=== PATIENT | female | born 1940 | race Caucasian/White ===

== ENCOUNTER → 2016-08-23 | Outpatient (CLI) | payer MEDICARE ==
[2016-04-21 16:15] VITALS: BP 142/68
[~2016-08-23] MED LIST: AMLO5TAB2 PO; ASPI81TA50 PO; CITA20TA5 PO; CONTRAST GIVEN MC PRN; HEPARIN PF 500 UNIT/5 ML DISP.SYRIN. IV ONE; HYDR-2666 PO; IBUP200T77 PO; IOHEXOL 240 MG/ML 50ML VIAL. PO ONE; IOHEXOL 300 MG/ML 75 ML VIAL IV ONE; LOSA1TAB17 PO; OMEP40CA5 PO; OXYB1PAT TD; OXYB5TAB7 PO; OXYC5CAP3 PO; OXYC5TAB PO
--- NOTE | 2016-08-23 15:43 | RAD ---
CT of the chest with contrast, 08/23/2016: History: Lung cancer follow-up. Multidetector CT imaging was performed following an IV bolus injection of iodinated contrast material. Comparison is made to a study from 02/10/2016. By history there has been an interval left lower lobectomy. The previously seen left infrahilar mass is no longer evident. There are mild hazy groundglass opacities in the posterior aspect of the left lung. There is mild linear scarring or atelectasis in the lingula. A small amount of left-sided pleural fluid is now evident. No right pulmonary mass or significant consolidation is seen. Minimal linear scarring laterally in the right base. There is no evidence of right-sided pleural fluid. A left Port-A-Cath extends into the right atrium. There is calcific plaquing of the thoracic aorta without evidence of aneurysm. No mediastinal or hilar adenopathy is seen. A small nonspecific low-density lesion is incidentally noted in the right lobe of the thyroid gland. This study was not optimized for evaluation of the pulmonary arteries, however, there appears to be a nonocclusive elongated filling defect in the right lower lumbar pulmonary artery extending into segmental branches. This was not evident on the previous study from 02/10/2016. The right breast is surgically absent. There is a mild superior endplate deformity at T12, not evident on 02/10/2016 study. IMPRESSION: 1. Status post left lower lobectomy. 2. Small left pleural effusion with mild nonspecific groundglass infiltrate posteriorly in the left upper lobe. 3. Incidental note is made of a nonocclusive pulmonary embolus in the right lower lobe pulmonary artery, not optimally demonstrated on this study due to technical factors. 4. Mild T12 vertebral compression deformity which has developed since 02/10/2016. Note: The findings were called to Dr. Finn at 3:39 PM on 08/23/2016. CT of the abdomen and pelvis with contrast, 08/23/2016: Multidetector CT imaging was performed following oral and IV administration of contrast. The liver is unremarkable. The gallbladder is not well distended. No pancreatic abnormality is seen. The spleen is of normal size. No renal or adrenal abnormality is detected. There is moderate calcific plaquing of the abdominal aorta and its branches. There is only slight dilatation of the infrarenal abdominal aorta which measures approximately 2.5 cm in AP dimension. No abdominal or pelvic adenopathy is seen. There is a moderate amount of gas and stool scattered throughout the colon. The small bowel loops are unremarkable. No free fluid or free air is evident in the abdomen or pelvis. There are moderate scattered degenerative changes of the lumbar spine. IMPRESSION: No CT evidence of metastatic disease in the abdomen or pelvis.
== END | disposition home or self-care (01) ==
LOC: CT 06:57
PROVIDERS: ATTEND Internal Medicine Hematology & Oncology
DX: C34.92 Malignant neoplasm of unspecified part of left bronchus or lung (principal); K59.03 Drug induced constipation; K20.8 Other esophagitis; K59.09 Other constipation; G62.9 Polyneuropathy, unspecified; J90 Pleural effusion, not elsewhere classified; Z90.2 Acquired absence of lung [part of]
CPT/HCPCS: 71260; 74177; Q9966; Q9967

== ENCOUNTER → 2017-02-09 | Outpatient (CLI) | payer BC, OTHER ==
[2016-04-21 16:15] VITALS: BP 142/68
[~2017-02-09] MED LIST changes: +APIX5TAB PO; -CONTRAST GIVEN MC PRN; -HYDR-2666 PO; +HYDR-2758 PO; -IOHEXOL 240 MG/ML 50ML VIAL. PO ONE; +OXYC5CAP PO; -OXYC5CAP3 PO
--- NOTE | 2017-02-09 11:18 | RAD ---
CT chest with contrast 02/09/2017 Clinical indication: Left lung carcinoma. History of breast carcinoma on the right status post mastectomy. Comparison: CT chest abdomen and pelvis August 23, 2016. Technique: Multiple CT images of the chest were obtained following uneventful intravenous administration of 75 mL Omnipaque 300. Coronal and sagittal reformations were obtained. PQRS Compliance Statement: One or more of the following individualized dose reduction techniques were utilized for this examination: 1. Automated exposure control 2. Adjustment of the mA and/or kV according to patient size 3. Use of iterative reconstruction technique Findings: Chest: Left IJ approach chest port with distal tip in similar position terminating in the right atrium. There is stable mild dilatation of the ascending thoracic aorta measuring 4.3 cm with minimal scattered calcified atheromatous disease. Coronary artery calcifications. Prior left lower lobectomy. There has been interval development of left perihilar consolidation measuring 3.4 x 1.3 cm (series 6/image 41). There is a stable 4 mm noncalcified nodule in the anterior left upper lobe (series 6/image 33). There are additional sub-3 mm noncalcified nodular opacities throughout the left lung.. There is a trace left pleural effusion. No pneumothorax. No axillary, mediastinal or right hilar lymphadenopathy. Prior right mastectomy. Multilevel thoracic spondylosis with unchanged moderate anterior-superior T12 compression deformity without significant bony retropulsion. Limited images of the upper abdomen: Small hiatal hernia. Impression: 1. Prior left lower lobectomy with development of mild left perihilar consolidation measuring up to 3.4 cm, indeterminate between posttherapeutic fibrosis versus recurrent tumor. Short-term follow-up CT chest with contrast and 1 months should be considered. 2. Unchanged bilateral sub-5 mm pulmonary nodules, indeterminate. These could be followed with the above findings. 3. No new thoracic adenopathy. 4. Stable moderate T12 compression deformity without bony retropulsion.
== END | disposition home or self-care (01) ==
LOC: CT 09:10
PROVIDERS: ATTEND Internal Medicine Hematology & Oncology
DX: C34.92 Malignant neoplasm of unspecified part of left bronchus or lung (principal); Z85.3 Personal history of malignant neoplasm of breast; Z90.11 Acquired absence of right breast and nipple
CPT/HCPCS: 71260; Q9967

== ENCOUNTER → 2017-03-25 | Outpatient (CLI) | payer BC, OTHER ==
[2016-04-21 16:15] VITALS: BP 142/68
[~2017-03-25] MED LIST changes: +AMLO2.5T PO; +GABA-586 PO; -HEPARIN PF 500 UNIT/5 ML DISP.SYRIN. IV ONE; -IOHEXOL 300 MG/ML 75 ML VIAL IV ONE; +LOSA1TAB16 PO; -OXYC5TAB PO; +OXYC5TAB95 PO; +PARO20TA99 PO
--- NOTE | 2017-03-25 12:56 | RAD ---
MR of the right shoulder Indication: Worsening right shoulder pain. Symptoms for one month. Technique: Standard multiplanar sequences are obtained. Findings: Mild motion degradation. Exam is still considered diagnostic. Acromioclavicular joint: Mildly degenerative. Rotator cuff: Mild thickening and increased signal compatible with tendinosis. There is a small linear deep undersurface tear of the anterior supraspinatus footprint, coronal series 6, image 14 measuring 5 mm AP diameter and involving 80 percent of the tendon depth. No complete through and through rupture or retraction. Trace fluid in the subdeltoid bursa. Partial subscapularis tendon tear. Glenohumeral cartilage: No advanced primary osteoarthritis. Fluid: No significant joint effusion. Labrum: Tear of the posterosuperior labrum. Biceps tendon: Mild tendinosis. Bones: No lesion or acute fracture. Soft tissue: No acute findings. Impression: 1. Rotator cuff tendinosis. Very small but deep linear undersurface tear of the anterior supraspinatus tendon. Partial subscapularis tendon tear. 2. Posterosuperior labral tear. Electronically signed by: Andrzej Robert MD (03/25/2017 12:53 PM) [id number]
--- NOTE | 2017-03-29 14:06 | PN ---
DATE: REFERRING PHYSICIAN: Dr. Eduardo Castro. DIAGNOSIS: Pathologic stage 3A (T2N2M0) adenocarcinoma of the left lung. She underwent biopsy in 02/2016. She underwent resection in 03/2016. She had mediastinal involvement with involvement of the bronchial margin of resection. She received adjuvant radiation to 50 Gy with carboplatin and Taxol, completing radiation in 05/2016. She then received ongoing chemotherapy and now returns 6 months following treatment. ICD-10 34.32. At the time of her followup here on 03/24/2017, she noted significant reduction in the mobility of her right shoulder to approximately 90 degrees from the torso. From oncologic standpoint, she was doing fairly well. CT scan of the chest at that time on 02/09/2017 revealed mixed air density around the left hilar region compatible with postradiation fibrosis with no adenopathy and a stable 4-mm nodule in the left upper lobe and 3-mm nodule in the left lung of uncertain significance. At that time, we did pursue an MRI scan of the right shoulder to evaluate her rotator cuff and to exclude the potential for metastatic disease causing her pain. The MRI scan revealed rotator cuff tendinosis with a very small, but deep linear undersurface tear of the anterior supraspinatus tendon and partial subscapularis tendon tear. There was also a posterosuperior labral tear. I discussed this with the patient by phone, I felt she required orthopedic evaluation and likely physical therapy for initial intervention for her rotator cuff tears. I have referred her to you for further assessment of this and referral to an orthopedic surgeon as indicated by your review. We will plan to see her in followup in 3 months with a repeat CT scan of the chest to assess stability of her post-radiation changes seen at her followup imaging in 02/2017. Thank you again for allowing us to participate in her care and followup. SULEMAN PEREA MD DR: SUZIE/stanislaw JOB#: [id number] / [id number] SAUD Petty
== END | disposition home or self-care (01) ==
LOC: MRI 10:33
PROVIDERS: ATTEND Radiology Radiation Oncology
DX: M75.101 Unspecified rotator cuff tear or rupture of right shoulder, not specified as traumatic (principal)
CPT/HCPCS: 73221

== ENCOUNTER → 2017-05-26 | Outpatient (CLI) | payer BC, OTHER ==
[2016-04-21 16:15] VITALS: BP 142/68
[~2017-05-26] MED LIST changes: -LOSA1TAB16 PO; -LOSA1TAB17 PO; +LOSA1TAB19 PO; +LOSA1TAB22 PO
--- NOTE | 2017-05-26 14:29 | RAD ---
EXAM: PET/CT SKULL BASE TO MID THIGH 05/26/2017. HISTORY: Malignant neoplasm of the female breast and lung. COMPARISON: CT chest 05/16/2017, CT chest 02/09/2017, PET CT 03/11/2016. TECHNIQUE: CT was performed from the skull base through the mid thighs for the purposes of attenuation correction. 12.4 mCi F-18 fluorodeoxyglucose (FDG) was administered intravenously. After an uptake period, positron emission tomography was performed from the skull base through the mid thighs. The PET and CT data were fused and interpreted in combination a dedicated workstation. Blood glucose level was 100 mg/dL at the time of FDG administration. FINDINGS: Head and neck: No discrete hypermetabolic mass or lymphadenopathy. Chest: Prior left lower lobectomy. There is left perihilar consolidation measuring 2.9 x 2.0 cm series 3/image 148 with mild associated FDG uptake maximum SUV of 3.6. No hypermetabolic thoracic lymphadenopathy. Abdomen and pelvis: There is physiologic uptake in both kidneys with excretion into the renal collecting system. There is intense increased FDG activity in the rectum with maximum SUV 5.9 with possible soft tissue mass on the CT images measuring 3.0 cm series 3 cm image 369. Musculoskeletal: There is a tiny punctate focus of FDG uptake at T11 with maximum SUV of 3.0 with no suspicious correlate on the CT images. Uncorrected PET images. Uncorrected PET images demonstrate no additional lesion. Low-dose CT findings: Left IJ chest port with distal tip terminating in the right atrium. Prior right mastectomy. Mild ectasia of the infrarenal abdominal aorta with moderate calcite atheromatous disease. Impression: 1. Prior left lower lobectomy with left perihilar masslike consolidation with mild increased FDG uptake, findings are indeterminate between posttherapeutic fibrosis and recurrent tumor. Continued follow-up is recommended. 2. Focal FDG uptake in the rectum with maximum SUV 5.9 and possible associated soft tissue mass. Endoscopy is recommended for further evaluation to exclude malignancy. 3. Punctate FDG uptake at T11 vertebral body with no associated CT correlate, may be physiologic. Attention on follow-up imaging is recommended. 4. No hypermetabolic lymphadenopathy in the neck or chest.
== END | disposition home or self-care (01) ==
LOC: PETSC 08:21
PROVIDERS: ATTEND Internal Medicine Hematology & Oncology
DX: C34.92 Malignant neoplasm of unspecified part of left bronchus or lung (principal); Z90.2 Acquired absence of lung [part of]
CPT/HCPCS: 78815; A9552

== ENCOUNTER → 2017-08-31 | Outpatient (CLI) | payer BC ==
[2017-08-31] MEDS: IOHEXOL 300 MG/ML 100ML VIAL. IV ×2 (09:08)
[2017-08-31] MEDS: HEPARIN PF 500 UNIT/5 ML DISP.SYRIN. IV ×2 (09:09)
== END | disposition home or self-care (01) ==
LOC: CT 08:30
DX: C34.92 Malignant neoplasm of unspecified part of left bronchus or lung (principal); S22.080G Wedge compression fracture of T11-T12 vertebra, subsequent encounter for fracture with delayed healing; R94.2 Abnormal results of pulmonary function studies; Z90.11 Acquired absence of right breast and nipple; X58.XXXD Exposure to other specified factors, subsequent encounter
CPT/HCPCS: 71260; Q9967

== ENCOUNTER → 2017-09-09 | Outpatient (CLI) | payer BC | END | disposition home or self-care (01) | LOC: NM 08:25 | DX: C34.92 Malignant neoplasm of unspecified part of left bronchus or lung (principal); M41.85 Other forms of scoliosis, thoracolumbar region; I10 Essential (primary) hypertension | CPT/HCPCS: 78306; 96374; A9503 ==

== ENCOUNTER 2017-11-15 10:19 | Emergency (ER) | payer BC ==
[2017-11-15] MEDS: oxyCODONE IR 5 MG TABLET PO (10:40)
[2017-11-15] MEDS: LIDOCAINE 1% Multi-Dose 50 ML VIAL. INJ (11:33)
== END 2017-11-15 12:03 | disposition home or self-care (01) ==
LOC: ER 10:19
DX: S52.501A Unspecified fracture of the lower end of right radius, initial encounter for closed fracture (principal); W01.0XXA Fall on same level from slipping, tripping and stumbling without subsequent striking against object, initial encounter; Y93.01 Activity, walking, marching and hiking; Y92.096 Garden or yard of other non-institutional residence as the place of occurrence of the external cause; Y99.8 Other external cause status; Z88.0 Allergy status to penicillin; Z88.2 Allergy status to sulfonamides; Z88.5 Allergy status to narcotic agent; Z91.048 Other nonmedicinal substance allergy status
CPT/HCPCS: 25605; 73110; 99284

== ENCOUNTER → 2017-11-18 | Day surgery (SDC) | payer BC ==
[~2017-11-18] MED LIST changes: -AMLO2.5T PO; -AMLO5TAB2 PO; -APIX5TAB PO; -ASPI81TA50 PO; -CITA20TA5 PO; +CLINDAMYCIN 600MG PREMIX 50 ML IV; +DEXAMETHASONE SOD PHOS 20 MG/5 ML VIAL.; -GABA-586 PO; +HEPARIN PF 500 UNIT/5 ML DISP.SYRIN. IV; -HYDR-2758 PO; -IBUP200T77 PO; +IV RINGERS,LACTATED 1000ML 1,000 ML IV; +LIDOCAINE 1% PF 2 ML VIAL. ID; +LIDOCAINE 2% PF Vial for OR 5 ML VIAL.; -LOSA1TAB19 PO; -LOSA1TAB22 PO; +MORPHINE SULFATE 4 MG/ML DISP.SYRIN. IV; -OMEP40CA5 PO; +ONDANSETRON PF 4 MG/2 ML VIAL.; -OXYB1PAT TD; -OXYB5TAB7 PO; -OXYC5CAP PO; -OXYC5TAB95 PO; -PARO20TA99 PO; +PROCHLORPERAZINE 10 MG/2 ML VIAL. IV; +PROPOFOL 20 ML IV; +SEVOFLURANE 61 TO 120 MINUTES. IH; +ceFAZolin 2GM PREMIX 2 GM/50 ML BAG IV; +fentaNYL PF VIAL 100 MCG/2 ML VIAL; +fentaNYL PF VIAL 100 MCG/2 ML VIAL IV
[2017-11-18 13:23] LABS: ADD MAN DIFF? NO
[2017-11-18 13:33] LABS: BASO % 1 % (0-3); EOS # 0.1 x10^3/uL (0.0-0.7); EOS % 2 % (0-3); HEMATOCRIT 34.7 % (36.0-47.0); HEMOGLOBIN 12.1 g/dL (12.0-15.5); LYMPH # 1.9 x10^3/uL (1.0-4.8); LYMPH % 28 % (24-48); MEAN CORPUSCULAR HEMOGLOBIN 30 pg (25-35); MEAN CORPUSCULAR HGB CONC 35 g/dL (31-37); MEAN CORPUSCULAR VOLUME 85 fL (79-100); MONO # 0.8 x10^3/uL (0.0-1.1); MONO % 11 % (0-9); NEUT # 3.8 x10^3uL (1.8-7.7); NEUT % 58 % (31-73); PLATELET COUNT 150 x10^3/uL (140-400); RED BLOOD COUNT 4.08 x10^6/uL (3.50-5.40); RED CELL DISTRIBUTION WIDTH 14.4 % (11.5-14.5); WHITE BLOOD COUNT 6.6 x10^3/uL (4.0-11.0)
[2017-11-18 13:34] LABS: BILIRUBIN,URINE NEGATIVE (NEG); CLARITY,URINE CLEAR; COLOR,URINE YELLOW; GLUCOSE,URINE NEGATIVE (NEG); NITRITE,URINE NEGATIVE (NEG); PROTEIN,URINE NEGATIVE (NEG-TRACE); UROBILINOGEN,URINE 0.2 mg/dL (0.2 mg/dL)
[2017-11-18 13:36] LABS: ANION GAP 6 (6-14); BLOOD UREA NITROGEN 14 mg/dL (7-20); BUN/CREATININE RATIO 18 (6-20); CALCIUM 9.2 mg/dL (8.5-10.1); CARBON DIOXIDE 30 mmol/L (21-32); CHLORIDE 102 mmol/L (98-107); CREATININE 0.8 mg/dL (0.6-1.0); GFR 69.7; GLUCOSE 101 mg/dL (70-99); POTASSIUM 3.5 mmol/L (3.5-5.1); SODIUM 138 mmol/L (136-145)
[2017-11-18 13:44] LABS: ALBUMIN 3.6 g/dL (3.4-5.0); ALK PHOS 85 U/L (46-116); ALT (SGPT) 19 U/L (14-59); AST (SGOT) 20 U/L (15-37); TOTAL BILIRUBIN 0.7 mg/dL (0.2-1.0); TOTAL PROTEIN 7.1 g/dL (6.4-8.2)
[2017-11-18] MEDS: IV RINGERS,LACTATED 1000ML 1,000 ML IV (13:44)
[2017-11-18 13:46] LABS: BACTERIA,URINE FEW /HPF (0-FEW); RBC,URINE 0 /HPF (0-2); SQUAMOUS EPITHELIAL CELL,UR OCC /LPF
[2017-11-18 15:47] LABS: INR 1.1 (0.8-1.1); PARTIAL THROMBOPLASTIN TIME 24 SEC (24-38); PROTHROMBIN TIME PATIENT 13.5 SEC (11.7-14.0)
[2017-11-18] MEDS: BUPIVACAINE-EPI 0.25%-1:200000 50 ML VIAL. (16:46)
[2017-11-18] MEDS: fentaNYL PF VIAL 100 MCG/2 ML VIAL IV ×2 (18:24→18:32)
[2017-11-18] MEDS: oxyCODONE IR 5 MG TABLET PO (19:21)
== END | disposition home or self-care (01) ==
LOC: SURG 12:26
DX: S52.571A Other intraarticular fracture of lower end of right radius, initial encounter for closed fracture (principal); E78.00 Pure hypercholesterolemia, unspecified; I10 Essential (primary) hypertension; Z88.0 Allergy status to penicillin; Z88.2 Allergy status to sulfonamides; Z88.6 Allergy status to analgesic agent; Z98.42 Cataract extraction status, left eye; Z98.41 Cataract extraction status, right eye; Z85.118 Personal history of other malignant neoplasm of bronchus and lung; Z98.890 Other specified postprocedural states; Z90.11 Acquired absence of right breast and nipple; E66.9 Obesity, unspecified; Z85.3 Personal history of malignant neoplasm of breast; F32.9 Major depressive disorder, single episode, unspecified; W17.81XA Fall down embankment (hill), initial encounter; Y93.89 Activity, other specified; Y92.89 Other specified places as the place of occurrence of the external cause; Y99.2 Volunteer activity
CPT/HCPCS: 25609; 36415; 80053; 81001; 85025; 85610; 85730; 87086; 93005; C1713; J0690; J1100; J2405; J2704; J3010; J7120

== ENCOUNTER → 2017-12-13 | Outpatient (CLI) | payer BC ==
[2017-12-13 14:40] LABS: ADD MAN DIFF? NO
[2017-12-13 14:44] LABS: BASO # 0.1 x10^3/uL (0.0-0.2); BASO % 1 % (0-3); EOS # 0.3 x10^3/uL (0.0-0.7); EOS % 3 % (0-3); HEMATOCRIT 35.8 % (36.0-47.0); HEMOGLOBIN 12.2 g/dL (12.0-15.5); LYMPH # 2.6 x10^3/uL (1.0-4.8); LYMPH % 31 % (24-48); MEAN CORPUSCULAR HEMOGLOBIN 29 pg (25-35); MEAN CORPUSCULAR HGB CONC 34 g/dL (31-37); MEAN CORPUSCULAR VOLUME 85 fL (79-100); MONO # 0.9 x10^3/uL (0.0-1.1); MONO % 11 % (0-9); NEUT # 4.6 x10^3uL (1.8-7.7); NEUT % 55 % (31-73); PLATELET COUNT 159 x10^3/uL (140-400); RED BLOOD COUNT 4.21 x10^6/uL (3.50-5.40); RED CELL DISTRIBUTION WIDTH 14.7 % (11.5-14.5); WHITE BLOOD COUNT 8.4 x10^3/uL (4.0-11.0)
[2017-12-13 15:13] LABS: ALBUMIN/GLOBULIN RATIO 1.1 (1.0-1.7); ALK PHOS 107 U/L (46-116); ALT (SGPT) 18 U/L (14-59); ANION GAP 8 (6-14); AST (SGOT) 21 U/L (15-37); BLOOD UREA NITROGEN 14 mg/dL (7-20); BUN/CREATININE RATIO 14 (6-20); CALCIUM 9.9 mg/dL (8.5-10.1); CARBON DIOXIDE 31 mmol/L (21-32); CHLORIDE 103 mmol/L (98-107); GFR 53.9; GLUCOSE 98 mg/dL (70-99); SODIUM 142 mmol/L (136-145); TOTAL BILIRUBIN 0.6 mg/dL (0.2-1.0); TOTAL PROTEIN 7.7 g/dL (6.4-8.2)
[2017-12-13 15:14] LABS: THYROID STIM HORMONE (TSH) 0.545 uIU/mL (0.358-3.74)
[2017-12-13 17:42] LABS: VITAMIN-B12 386 pg/mL (247-911)
== END | disposition home or self-care (01) ==
LOC: LAB 14:26
DX: R41.0 Disorientation, unspecified (principal)
CPT/HCPCS: 36415; 80053; 82306; 82607; 84443; 85025

== ENCOUNTER → 2017-12-15 | Outpatient (CLI) | payer BC | END | disposition home or self-care (01) | LOC: RT 07:59 | DX: R41.3 Other amnesia (principal) | CPT/HCPCS: 95816 ==

== ENCOUNTER → 2017-12-19 | Outpatient (CLI) | payer BC ==
[2017-12-19] MEDS: GADOBUTROL 7.5 MMOL/7.5 ML VIAL IV (09:21)
== END | disposition home or self-care (01) ==
LOC: MRI 08:09
DX: R41.3 Other amnesia (principal); Z85.3 Personal history of malignant neoplasm of breast; Z85.118 Personal history of other malignant neoplasm of bronchus and lung
CPT/HCPCS: 70553; A9585

== ENCOUNTER → 2017-12-27 | Outpatient (CLI) | payer BC ==
[2017-12-27] MEDS: IOHEXOL 300 MG/ML 100ML VIAL. IV (08:21)
== END | disposition home or self-care (01) ==
LOC: CT 07:37
DX: C34.92 Malignant neoplasm of unspecified part of left bronchus or lung (principal); I10 Essential (primary) hypertension; E78.00 Pure hypercholesterolemia, unspecified; Z85.3 Personal history of malignant neoplasm of breast
CPT/HCPCS: 71260; Q9967

== ENCOUNTER 2018-02-12 15:13 | Inpatient (IN) | payer BC ==
[2018-02-12 17:41] LABS: ADD MAN DIFF? NO
[2018-02-12 17:44] LABS: BASO # 0.1 x10^3/uL (0.0-0.2); BASO % 1 % (0-3); EOS # 0.1 x10^3/uL (0.0-0.7); EOS % 1 % (0-3); HEMATOCRIT 26.4 % (36.0-47.0); HEMOGLOBIN 9.3 g/dL (12.0-15.5); LYMPH # 2.6 x10^3/uL (1.0-4.8); LYMPH % 31 % (24-48); MEAN CORPUSCULAR HEMOGLOBIN 30 pg (25-35); MEAN CORPUSCULAR HGB CONC 35 g/dL (31-37); MEAN CORPUSCULAR VOLUME 85 fL (79-100); MONO # 0.6 x10^3/uL (0.0-1.1); MONO % 8 % (0-9); NEUT % 60 % (31-73); PLATELET COUNT 189 x10^3/uL (140-400); RED BLOOD COUNT 3.12 x10^6/uL (3.50-5.40); RED CELL DISTRIBUTION WIDTH 18.5 % (11.5-14.5); WHITE BLOOD COUNT 8.3 x10^3/uL (4.0-11.0)
[2018-02-12 17:54] LABS: ANION GAP 8 (6-14); BLOOD UREA NITROGEN 22 mg/dL (7-20); CARBON DIOXIDE 32 mmol/L (21-32); CHLORIDE 95 mmol/L (98-107); CREATININE 0.7 mg/dL (0.6-1.0); GFR 81.4; GLUCOSE 104 mg/dL (70-99); POTASSIUM 3.2 mmol/L (3.5-5.1); SODIUM 135 mmol/L (136-145)
[2018-02-12 17:55] LABS: INR 1.1 (0.8-1.1); PARTIAL THROMBOPLASTIN TIME 20 SEC (24-38); PROTHROMBIN TIME PATIENT 13.4 SEC (11.7-14.0)
[2018-02-12] MEDS ORDERED: HEPARIN 25,000UTS/500ML PREMIX 500 ML IV (18:00)
[2018-02-12] MEDS ORDERED: ONDANSETRON PF 4 MG/2 ML VIAL. IV (18:00)
[2018-02-12] MEDS ORDERED: MORPHINE SULFATE 4 MG/ML DISP.SYRIN. IV (18:00)
[2018-02-12] MEDS: IOHEXOL 300 MG/ML 100ML VIAL. IV (18:03)
[2018-02-12] MEDS ORDERED: HEPARIN for IV BOLUS 10,000 UNIT/10 ML VIAL. IV ×3 (19:15)
[2018-02-12] MEDS ORDERED: WARFARIN 7.5 MG TABLET. PO (20:00)
[2018-02-12] MEDS ORDERED: IBUPROFEN 400 MG TABLET. PO (21:45)
[2018-02-12] MEDS: IV NORMAL SALINE 1000ML BAG 1,000 ML IV (21:57)
[2018-02-13] MEDS: IV NORMAL SALINE 1000ML BAG 1,000 ML IV ×3 (04:15→20:49)
[2018-02-13 05:21] LABS: INR 1.2 (0.8-1.1)
[2018-02-13 08:11] LABS: ADD MAN DIFF? NO
[2018-02-13 08:20] LABS: ANION GAP 7 (6-14); BLOOD UREA NITROGEN 17 mg/dL (7-20); CARBON DIOXIDE 32 mmol/L (21-32); CHLORIDE 99 mmol/L (98-107); CREATININE 0.7 mg/dL (0.6-1.0); GFR 81.4; GLUCOSE 100 mg/dL (70-99); SODIUM 138 mmol/L (136-145)
[2018-02-13 08:23] LABS: BASO % 1 % (0-3); EOS # 0.1 x10^3/uL (0.0-0.7); EOS % 1 % (0-3); HEMATOCRIT 23.8 % (36.0-47.0); HEMOGLOBIN 8.2 g/dL (12.0-15.5); LYMPH % 29 % (24-48); MEAN CORPUSCULAR HEMOGLOBIN 30 pg (25-35); MEAN CORPUSCULAR HGB CONC 35 g/dL (31-37); MEAN CORPUSCULAR VOLUME 85 fL (79-100); MONO # 0.7 x10^3/uL (0.0-1.1); MONO % 9 % (0-9); NEUT # 4.3 x10^3uL (1.8-7.7); NEUT % 61 % (31-73); PLATELET COUNT 196 x10^3/uL (140-400); RED BLOOD COUNT 2.79 x10^6/uL (3.50-5.40); RED CELL DISTRIBUTION WIDTH 18.8 % (11.5-14.5); WHITE BLOOD COUNT 7.1 x10^3/uL (4.0-11.0)
[2018-02-13] MEDS ORDERED: PARoxetine 20 MG TABLET PO (09:00)
[2018-02-13] MEDS: oxyCODONE IR 5 MG TABLET PO (09:16)
[2018-02-13] MEDS: POTASSIUM CHLORIDE 20 MEQ TABLET.ER. PO (09:16)
[2018-02-13] MEDS: OXYBUTYNIN CHLORIDE 5 MG TABLET PO ×2 (09:17→20:49)
[2018-02-13] MEDS: hydroCHLOROthiazide 12.5 MG CAPSULE PO (09:17)
[2018-02-13] MEDS: ASPIRIN CHEWABLE 81 MG TABLET. PO (09:17)
[2018-02-13] MEDS: amLODIPine BESYLATE 2.5 MG TABLET PO (09:17)
[2018-02-13] MEDS: LOSARTAN POTASSIUM 50 MG TABLET. PO (09:17)
[2018-02-13] MEDS: CITALOPRAM 20 MG TABLET. PO (09:18)
[2018-02-13 12:19] LABS: UNFRACTIONATED HEPARIN TESTING 0.79 IU/mL (0.30-0.70)
[2018-02-13] MEDS ORDERED: HEPARIN for IV BOLUS 10,000 UNIT/10 ML VIAL. IV (14:00)
[2018-02-13] MEDS: HEPARIN for IV BOLUS 10,000 UNIT/10 ML VIAL. IV (14:55)
[2018-02-13] MEDS: HEPARIN 25,000UTS/500ML PREMIX 500 ML IV (15:12)
[2018-02-13 18:38] LABS: UNFRACTIONATED HEPARIN TESTING > 1.10 IU/mL (0.30-0.70)
[2018-02-14 01:42] LABS: ADD MAN DIFF? NO
[2018-02-14 01:47] LABS: BASO % 1 % (0-3); EOS # 0.1 x10^3/uL (0.0-0.7); EOS % 1 % (0-3); HEMATOCRIT 21.7 % (36.0-47.0); HEMOGLOBIN 7.8 g/dL (12.0-15.5); LYMPH # 2.2 x10^3/uL (1.0-4.8); LYMPH % 34 % (24-48); MEAN CORPUSCULAR HEMOGLOBIN 30 pg (25-35); MEAN CORPUSCULAR HGB CONC 36 g/dL (31-37); MEAN CORPUSCULAR VOLUME 85 fL (79-100); MONO # 0.6 x10^3/uL (0.0-1.1); MONO % 10 % (0-9); NEUT # 3.5 x10^3uL (1.8-7.7); NEUT % 54 % (31-73); PLATELET COUNT 220 x10^3/uL (140-400); RED BLOOD COUNT 2.56 x10^6/uL (3.50-5.40); RED CELL DISTRIBUTION WIDTH 18.3 % (11.5-14.5); WHITE BLOOD COUNT 6.5 x10^3/uL (4.0-11.0)
[2018-02-14 01:54] LABS: INR 1.1 (0.8-1.1); PROTHROMBIN TIME PATIENT 13.9 SEC (11.7-14.0)
[2018-02-14 01:55] LABS: UNFRACTIONATED HEPARIN TESTING 0.62 IU/mL (0.30-0.70)
[2018-02-14 02:06] LABS: ANION GAP 4 (6-14); BLOOD UREA NITROGEN 13 mg/dL (7-20); CALCIUM 7.8 mg/dL (8.5-10.1); CARBON DIOXIDE 32 mmol/L (21-32); CHLORIDE 101 mmol/L (98-107); CREATININE 0.7 mg/dL (0.6-1.0); GFR 81.4; GLUCOSE 106 mg/dL (70-99); POTASSIUM 3.1 mmol/L (3.5-5.1); SODIUM 137 mmol/L (136-145)
[2018-02-14] MEDS: IV NORMAL SALINE 1000ML BAG 1,000 ML IV (06:07)
[2018-02-14] MEDS: ASPIRIN CHEWABLE 81 MG TABLET. PO (07:29)
[2018-02-14] MEDS: CITALOPRAM 20 MG TABLET. PO (07:29)
[2018-02-14] MEDS: OXYBUTYNIN CHLORIDE 5 MG TABLET PO ×2 (07:30→20:38)
[2018-02-14] MEDS: LOSARTAN POTASSIUM 50 MG TABLET. PO (08:56)
[2018-02-14] MEDS: amLODIPine BESYLATE 2.5 MG TABLET PO (08:56)
[2018-02-14] MEDS ORDERED: LIDOCAINE WITH 8.4% SOD BICARB 3 ML DISP.SYRIN. (09:29)
[2018-02-14] MEDS ORDERED: IOHEXOL 300 MG/ML 100ML VIAL. (09:29)
[2018-02-14] MEDS ORDERED: diphenhydrAMINE 50 MG/ML VIAL (10:45)
[2018-02-14] MEDS ORDERED: HYDROCORTISONE SOD SUCC/PF 250 MG/2 ML VIAL. (10:45)
[2018-02-14] MEDS: IOHEXOL 300 MG/ML 100ML VIAL. IART (11:00)
[2018-02-14] MEDS: diphenhydrAMINE 50 MG/ML VIAL IVP (11:00)
[2018-02-14] MEDS: HYDROCORTISONE SOD SUCC/PF 250 MG/2 ML VIAL. IV (11:00)
[2018-02-14] MEDS: LIDOCAINE WITH 8.4% SOD BICARB 3 ML DISP.SYRIN. IJ (11:00)
[2018-02-14] MEDS ORDERED: CONTRAST GIVEN. MC (11:15)
[2018-02-14] MEDS: ANTI-COAG MONITOR BY PHARMACY. MC ×2 (12:35→12:36)
[2018-02-14 16:39] LABS: UNFRACTIONATED HEPARIN TESTING < 0.10 IU/mL (0.30-0.70)
[2018-02-14] MEDS: POTASSIUM CHLORIDE 20 MEQ TABLET.ER. PO (17:08)
[2018-02-14] MEDS: HEPARIN for IV BOLUS 10,000 UNIT/10 ML VIAL. IV (17:13)
[2018-02-14] MEDS: HEPARIN 25,000UTS/500ML PREMIX 500 ML IV (20:42)
[2018-02-14 23:51] LABS: UNFRACTIONATED HEPARIN TESTING 0.53 IU/mL (0.30-0.70)
[2018-02-15 06:47] LABS: INR 1.2 (0.8-1.1); PROTHROMBIN TIME PATIENT 14.3 SEC (11.7-14.0)
[2018-02-15 06:48] LABS: UNFRACTIONATED HEPARIN TESTING 0.56 IU/mL (0.30-0.70)
[2018-02-15 07:56] LABS: ADD MAN DIFF? NO
[2018-02-15 08:16] LABS: BASO % 0 % (0-3); EOS % 0 % (0-3); HEMATOCRIT 22.7 % (36.0-47.0); HEMOGLOBIN 7.8 g/dL (12.0-15.5); LYMPH # 2.5 x10^3/uL (1.0-4.8); LYMPH % 33 % (24-48); MEAN CORPUSCULAR HEMOGLOBIN 29 pg (25-35); MEAN CORPUSCULAR HGB CONC 34 g/dL (31-37); MEAN CORPUSCULAR VOLUME 85 fL (79-100); MONO # 0.7 x10^3/uL (0.0-1.1); MONO % 9 % (0-9); NEUT # 4.3 x10^3uL (1.8-7.7); NEUT % 58 % (31-73); PLATELET COUNT 282 x10^3/uL (140-400); RED BLOOD COUNT 2.67 x10^6/uL (3.50-5.40); RED CELL DISTRIBUTION WIDTH 18.7 % (11.5-14.5); WHITE BLOOD COUNT 7.5 x10^3/uL (4.0-11.0)
[2018-02-15] MEDS: CITALOPRAM 20 MG TABLET. PO (08:36)
[2018-02-15] MEDS: LOSARTAN POTASSIUM 50 MG TABLET. PO (08:36)
[2018-02-15] MEDS: OXYBUTYNIN CHLORIDE 5 MG TABLET PO (08:36)
[2018-02-15] MEDS: ASPIRIN CHEWABLE 81 MG TABLET. PO (08:36)
[2018-02-15] MEDS: amLODIPine BESYLATE 2.5 MG TABLET PO (09:00)
[2018-02-15] MEDS: ANTI-COAG MONITOR BY PHARMACY. MC (11:38)
== END 2018-02-15 15:30 | disposition home or self-care (01) | DRG 166 ==
LOC: ER 15:13 → 4 NORTH 17:30
PROC: 06H03DZ Insertion of Intraluminal Device into Inferior Vena Cava, Percutaneous Approach (ICD-10-PCS; principal; 2018-02-14)
DX: I26.99 Other pulmonary embolism without acute cor pulmonale (principal); J96.01 Acute respiratory failure with hypoxia; I82.433 Acute embolism and thrombosis of popliteal vein, bilateral; C79.31 Secondary malignant neoplasm of brain; D68.59 Other primary thrombophilia; I82.441 Acute embolism and thrombosis of right tibial vein; F32.9 Major depressive disorder, single episode, unspecified; F41.9 Anxiety disorder, unspecified; M17.11 Unilateral primary osteoarthritis, right knee; G47.30 Sleep apnea, unspecified; I10 Essential (primary) hypertension; E87.6 Hypokalemia; W01.0XXA Fall on same level from slipping, tripping and stumbling without subsequent striking against object, initial encounter; Z85.841 Personal history of malignant neoplasm of brain; Z90.11 Acquired absence of right breast and nipple; Z90.2 Acquired absence of lung [part of]; Z85.3 Personal history of malignant neoplasm of breast; Z92.21 Personal history of antineoplastic chemotherapy; Z92.3 Personal history of irradiation; Z88.6 Allergy status to analgesic agent; Z88.0 Allergy status to penicillin; Z88.2 Allergy status to sulfonamides; Z91.048 Other nonmedicinal substance allergy status; Z85.118 Personal history of other malignant neoplasm of bronchus and lung; Y93.89 Activity, other specified; Y92.89 Other specified places as the place of occurrence of the external cause; Y99.8 Other external cause status
CPT/HCPCS: 36415; 37191; 70450; 70486; 71275; 72125; 73562; 73590; 80048; 85025; 85520; 85610; 85730; 93970; 94618; 97116-GP; 97162-GP; 97530-GP; 99285; 99285-25; C1769; C1892; G8978-CJ-GP; G8979-CJ-GP; G8980-CJ-GP; J1200; J1644; J1650; J7030; Q9967

== ENCOUNTER → 2018-04-13 | Outpatient (CLI) | payer BC ==
[2018-02-13 11:00] VITALS: BP 113/56
[~2018-04-13] MED LIST changes: +AMLO2.5T3 PO; +AMLO5TAB7 PO; +APIX5TAB PO; +ASPI-630 PO; +ASPI81TA50 PO; +CITA20TA6 PO; +CITA20TA9 PO; -CLINDAMYCIN 600MG PREMIX 50 ML IV; +CONTRAST GIVEN. MC PRN; -DEXAMETHASONE SOD PHOS 20 MG/5 ML VIAL.; +GABA-586 PO; -HEPARIN PF 500 UNIT/5 ML DISP.SYRIN. IV; +HYDR-2758 PO; +IBUP-1027 PO; +IBUP200T77 PO; +IOHEXOL 240 MG/ML 50ML VIAL. PO ONE; +IOHEXOL 300 MG/ML 100ML VIAL. IV ONE; -IV RINGERS,LACTATED 1000ML 1,000 ML IV; -LIDOCAINE 1% PF 2 ML VIAL. ID; -LIDOCAINE 2% PF Vial for OR 5 ML VIAL.; +LOSA1TAB19 PO; +LOSA1TAB22 PO; -MORPHINE SULFATE 4 MG/ML DISP.SYRIN. IV; +OMEP40CA5 PO; -ONDANSETRON PF 4 MG/2 ML VIAL.; +OXYB1PAT TD; +OXYB5TAB7 PO; +OXYC5CAP PO; +OXYC5TAB95 PO; +PARO20TA99 PO; -PROCHLORPERAZINE 10 MG/2 ML VIAL. IV; -PROPOFOL 20 ML IV; -SEVOFLURANE 61 TO 120 MINUTES. IH; -ceFAZolin 2GM PREMIX 2 GM/50 ML BAG IV; -fentaNYL PF VIAL 100 MCG/2 ML VIAL; -fentaNYL PF VIAL 100 MCG/2 ML VIAL IV
--- NOTE | 2018-04-13 15:20 | RAD ---
CT CHEST ABD PELVIS W/CONTRAST Indication: Staging lung cancer. Nonsquamous non-small cell neoplasm of left lung. Exposure: One or more of the following individualized dose reduction techniques were utilized for this examination: 1. Automated exposure control 2. Adjustment of the mA and/or kV according to patient size 3. Use of iterative reconstruction technique. Comparison: Prior CTA chest 02/12/2018. Prior abdomen pelvis 08/23/2016. Contrast: Intravenous contrast was given. Oral contrast was given. CHEST: Thoracic aorta: Mildly calcified. No evidence of aneurysm or dissection. Great vessel origins: Patent Pulmonary arteries: Abnormal soft tissue within or adjacent to the left main pulmonary artery is again identified, stable in size and appearance since the previous exam, accounting for some difference in technique between the 2 studies, as that was a CTA. Thyroid gland: Visualized aspect is unremarkable. Lymph nodes: Small axillary lymph nodes are identified. These have increased since the prior study. Largest, image 13, measures 19 mm x 24 mm and demonstrates a low-density or necrotic central aspect. Heart: Mild pericardial effusion, stable Esophagus: Unremarkable Pleural spaces: Small left pleural effusion, unchanged. Lungs: Previously seen groundglass opacities have resolved. There is soft tissue opacity with surrounding interstitial markings at the left hilum is again identified and unchanged. Nodule in the left upper lobe, series 2, image 23, is stable measuring about 4-5 mm. Small nodule in the right middle lobe is unchanged, series 2, image 39, measuring about 3 or 4 mm. Trachea and central airways: Patent Spine: Degenerative spondylosis. Bones: No aggressive destructive lesion. Impression: 1. Development of enlarged left axillary lymph nodes, compatible with metastatic disease. 2. Abnormal soft tissue opacity at the left main pulmonary artery persists and is unchanged, again could represent a pulmonary embolus or tumor. 3. Small pulmonary nodules and left hilar opacity are stable. 4. Previously seen groundglass opacities have resolved. ABDOMEN PELVIS: Liver: Unremarkable Spleen: Unremarkable Pancreas: Unremarkable Adrenals: No evidence of mass. Kidneys: No obvious mass. Urinary tracts: No hydronephrosis. Gallbladder: Subtle density at the inferior gallbladder probably just volume averaging, gallstone considered unlikely, series 4, image 27. Lymph nodes: And enlargement of multiple aortocaval lymph nodes is now identified. These measure up to 17 mm in short axis diameter. Vessels: * Aorta: Calcified, mildly ectatic, unchanged. * Major aortic branches: Calcified * Portal venous: Patent GI tract: Moderate retained stool in the colon and rectum. No evidence of acute colitis. There is also gaseous distention of colon. No evidence of small bowel obstruction. Structure thought to represent a normal appendix is identified. Reproductive organs:No evidence of mass. Urinary bladder: Not adequately distended for evaluation. Peritoneum: No evidence of pneumoperitoneum. No free fluid. Abdominal wall:Unremarkable Spine: Left convexity scoliosis. There is degenerative spondylosis. Bones: No aggressive bone destruction. IMPRESSION: 1. Development of mild aortocaval retroperitoneal lymph node enlargement, concerning for metastatic disease. 2. Constipation. 3. Subtle density at the gallbladder is likely volume averaging, gallstone considered unlikely. Electronically signed by: Andrzej Robert MD (04/13/2018 3:16 PM) [email or web address]
== END | disposition home or self-care (01) ==
LOC: CT 12:10
PROVIDERS: ATTEND Internal Medicine Hematology & Oncology
DX: C34.92 Malignant neoplasm of unspecified part of left bronchus or lung (principal); K59.00 Constipation, unspecified; M41.86 Other forms of scoliosis, lumbar region; M47.896 Other spondylosis, lumbar region; K63.89 Other specified diseases of intestine; I77.811 Abdominal aortic ectasia; M47.894 Other spondylosis, thoracic region; R59.0 Localized enlarged lymph nodes
CPT/HCPCS: 71260; 74177; Q9966; Q9967

== ENCOUNTER → 2018-04-18 | Outpatient (CLI) | payer BC ==
[2018-02-13 11:00] VITALS: BP 113/56
[~2018-04-18] MED LIST changes: -CONTRAST GIVEN. MC PRN; +GADOBUTROL 7.5 MMOL/7.5 ML VIAL IV ONE; -IOHEXOL 240 MG/ML 50ML VIAL. PO ONE; -IOHEXOL 300 MG/ML 100ML VIAL. IV ONE
--- NOTE | 2018-04-18 12:12 | RAD ---
MRI of the Brain without and with Contrast 04/18/2018 Clinical History: History of metastatic lung cancer. Syncope. Technique: Unenhanced T1-weighted sagittal and axial and FLAIR, T2-weighted, gradient echo and diffusion-weighted axial images of the brain were obtained. After the intravenous administration of 7.5 cc of Gadavist, enhanced T1-weighted axial, sagittal and coronal images of the brain were obtained. Findings: Comparison study is dated 12/19/2017. There is generalized parenchymal atrophy. Patchy and small scattered areas of abnormally increased signal intensity are seen within the periventricular and subcortical white matter of both cerebral hemispheres on the FLAIR and T2-weighted images consistent with areas of small vessel ischemic disease. An enhancing mass is seen involving the posterior left temporal lobe consistent with metastasis. This measures 2.0 x 1.8 x 1.7 cm in AP, transverse and craniocaudal dimensions. It has decreased in size since the previous examination where it measured 2.1 x 2.0 x 2.0 cm in size. There is surrounding edema and associated mass effect which has improved since the previous examination. No midline shift is seen. No additional metastasis is seen involving the brain parenchyma. No extra-axial fluid collection is seen. There is no MRI evidence of acute ischemia/infarction. Mild mucosal thickening in seen scattered throughout the paranasal sinuses bilaterally. There is minimal bilateral mastoid effusions. Normal flow voids are seen within the major vascular structures surrounding the brain parenchyma. IMPRESSION: Interval decrease in size of the 2 cm metastasis involving the posterior left temporal lobe as outlined above. There has been interval improvement in the surrounding edema and associated mass effect. No new metastasis is seen. Electronically signed by: Devon Peña MD (04/18/2018 12:09 PM) [id number]
== END | disposition home or self-care (01) ==
LOC: MRI 10:00
PROVIDERS: ATTEND Internal Medicine Hematology & Oncology
DX: C79.31 Secondary malignant neoplasm of brain (principal); R55 Syncope and collapse; I10 Essential (primary) hypertension; Z79.01 Long term (current) use of anticoagulants; Z88.2 Allergy status to sulfonamides
CPT/HCPCS: 70553; A9585

== ENCOUNTER → 2018-04-28 | Outpatient (CLI) | payer BC ==
[2018-02-13 11:00] VITALS: BP 113/56
[~2018-04-28] MED LIST changes: +CONTRAST GIVEN. MC PRN; -GADOBUTROL 7.5 MMOL/7.5 ML VIAL IV ONE
[2018-04-28] MEDS: IOHEXOL 300 MG/ML 100ML VIAL. IV ONE (08:46)
--- NOTE | 2018-04-28 10:55 | RAD ---
CTA of the chest with contrast, 04/28/2018: HISTORY: Shortness of breath, chest pain Multidetector CT imaging was performed following an IV bolus injection of iodinated contrast material. Multiplanar reconstructions were produced including coronal and sagittal MIP images. Comparison is made to a study from 04/13/2018. The central pulmonary arteries are well opacified. There has been a previous left lower lobectomy. There is a persistent small mural density involving the posterior aspect of the distal left main pulmonary artery. It is unchanged since 04/13/2018. It lies just superior to the level of surgical sutures related to the stump of the left lower lobe bronchus. The appearance again raise the possibility of recurrent tumor. A focal mural thrombus is less likely. No new filling defect related to the pulmonary arteries is seen. The heart is generally enlarged. There is moderate calcific plaquing of the thoracic aorta without evidence of aneurysm. Mild adenopathy along the right side of the esophagus near the azygos vein level appears unchanged. There is persistent left axillary adenopathy with the largest node measuring 2.7 cm. Mildly enlarged retroperitoneal lymph nodes are again noted in the upper abdomen. Patchy groundglass opacities have developed in both lungs. The noninspiratory technique utilized for the CTA pulmonary embolism protocol may be contributing to this appearance. There is mild atelectasis posteriorly in the left base. A small pulmonary nodule seen medially in the left upper lobe on image 50 of series #3 is unchanged. The right breast is surgically absent. Moderate multilevel degenerative changes are present in the spine. IMPRESSION: 1. Unchanged soft tissue density involving the wall of the left main pulmonary artery. Considering its shape and proximity to the left lower lobectomy surgical site, recurrent tumor invading the pulmonary artery is a significant possibility. Chronic mural thrombus cannot be excluded. FDG PET/CT scanning may be useful for further evaluation, if clinically indicated. 2. No new pulmonary arterial abnormality is detected. 3. Mild unchanged mediastinal and upper abdominal adenopathy, and moderate left axillary adenopathy is noted. 4. Moderate patchy nonspecific groundglass opacities in both lungs. PQRS Compliance Statement: One or more of the following individualized dose reduction techniques were utilized for this examination: 1. Automated exposure control 2. Adjustment of the mA and/or kV according to patient size 3. Use of iterative reconstruction technique Electronically signed by: Fady Arias MD (04/28/2018 10:51 AM) [facility]
--- NOTE | 2018-04-28 11:58 | RAD ---
Bilateral lower extremity venous ultrasound, 04/28/2018: History: Follow-up DVT Duplex evaluation of the deep veins in the lower extremities was performed including grayscale, color-flow and spectral Doppler analysis. Comparison is made to a study from 02/12/2018. The right common femoral and superficial femoral veins are patent. There is occlusive thrombus in the right popliteal vein extending into posterior tibial and peroneal veins in the upper calf. Similar findings were present on the previous study. On the left, the common femoral and proximal superficial femoral veins are patent. There is occlusive thrombus in the superficial femoral vein in the distal thigh, which was not evident on the previous study. There is thrombus in the left popliteal vein extending into posterior tibial and peroneal veins in the upper calf, also present on the previous study. IMPRESSION: 1 Ongoing extensive bilateral deep vein thrombosis involving the popliteal veins with extension into the calves. 2. New segment of occlusive thrombus in the left superficial femoral vein in the distal thigh. Electronically signed by: Fady Arias MD (04/28/2018 11:54 AM) [facility]
== END | disposition home or self-care (01) ==
LOC: CT 08:24
PROVIDERS: ATTEND Internal Medicine Critical Care Medicine
DX: I82.493 Acute embolism and thrombosis of other specified deep vein of lower extremity, bilateral (principal); I82.412 Acute embolism and thrombosis of left femoral vein; J98.11 Atelectasis; R91.1 Solitary pulmonary nodule; R59.0 Localized enlarged lymph nodes; R91.8 Other nonspecific abnormal finding of lung field
CPT/HCPCS: 71275; 93970; Q9967

== ENCOUNTER → 2018-05-11 | Outpatient (CLI) | payer BC ==
[2018-02-13 11:00] VITALS: BP 113/56
[~2018-05-11] MED LIST changes: -CONTRAST GIVEN. MC PRN
--- NOTE | 2018-05-17 17:59 | EEG ---
DATE OF SERVICE: 05/11/2018 ELECTROENCEPHALOGRAM NUMBER: [id number]. OBJECTIVE: This is a 78-year-old female patient with history of memory loss and confusional episodes. EEG was requested to evaluate cerebral activity. METHODS: Twenty electrodes were applied according to the international 10-20 electrode placement system. EKG monitoring, hyperventilation, intermittent photic stimulation, monopolar and bipolar montages are routinely utilized. The record was obtained on a digital system with video monitoring. FINDINGS: 1. Background: The patient was recorded in the awake, drowsy and sleep states. The overall background amplitude is 10-30 microvolts. A posterior dominant rhythm of 8 Hz is observed. 2. Abnormalities: No specific epileptiform discharge or electrographic seizure is seen. No focal or diffuse slowing. 3. Activation: Hyperventilation was performed with good efforts and normal response. Intermittent photic stimulation was performed with photic driving. IMPRESSION: This electroencephalogram is a normal study for the awake, drowsy and sleep states. No focal, lateralizing, specific epileptiform discharge or electrographic seizure is seen. YURIDIA LUEVANO MD DR: SCARLETT/stanislaw JOB#: [id number] / [id number] SARITA
== END | disposition home or self-care (01) ==
LOC: RT 07:35
PROVIDERS: ATTEND Psychiatry & Neurology Neurology
DX: R41.3 Other amnesia (principal)
CPT/HCPCS: 95816

== ENCOUNTER → 2018-06-26 | Outpatient (CLI) | payer BC ==
[2018-02-13 11:00] VITALS: BP 113/56
[~2018-06-26] MED LIST changes: -GABA-586 PO; +GABA300C18 PO; -HYDR-2758 PO; +HYDR-2761 PO; +OXYC5TAB4 PO; -OXYC5TAB95 PO
--- NOTE | 2018-06-26 16:36 | RAD ---
Chest PA and lateral 06/26/2018. Reason for exam: Shortness of breath. History of breast cancer. Comparison is made with CT angiogram of 04/28/2018 and previous chest radiograph of 05/03/2016. A Port-A-Cath remains in place. There is still some opacity along the left cardiac margin and some elevation of left hemidiaphragm. These findings appear similar to the prior studies. No new infiltrate is seen. There may be a trace of pleural fluid on the left. Heart size is normal. IMPRESSION: No clear-cut acute findings. Electronically signed by: Tin Monge Jr., MD (06/26/2018 4:32 PM) [facility]
== END | disposition home or self-care (01) ==
LOC: RAD 13:30
PROVIDERS: ATTEND Internal Medicine Hematology & Oncology
DX: R06.02 Shortness of breath (principal); J98.6 Disorders of diaphragm; Z85.3 Personal history of malignant neoplasm of breast; Z85.118 Personal history of other malignant neoplasm of bronchus and lung
CPT/HCPCS: 71046

== ENCOUNTER 2018-07-10 07:23 | Outpatient (CLI) | payer BC ==
[~2018-07-10] VITALS: Ht 167.6 cm; Wt 75.7 kg
[2018-07-10 08:00] VITALS: BP 130/62
[2018-07-10] MEDS ORDERED: SODIUM BICARBONATE VIAL 150 MEQ in IV STERILE WATER 1,000 ML IV PRN (08:00)
[2018-07-10] MEDS ORDERED: IOHEXOL 300 MG/ML 100ML VIAL. IV ONE (09:45)
[2018-07-10] MEDS ORDERED: IOHEXOL 240 MG/ML 50ML VIAL. PO ONE (09:45)
[2018-07-10 11:05] VITALS: BP 133/78
[2018-07-10] MEDS ORDERED: GADOBUTROL 7.5 MMOL/7.5 ML VIAL IV ONE (12:00)
--- NOTE | 2018-07-10 13:09 | RAD ---
CT chest and abdomen with contrast Indication: Left lung cancer, brain metastases Technique: Postcontrast CT imaging was performed of the chest and abdomen, multiplanar reconstruction images submitted. One or more of the following individualized dose reduction techniques were utilized for this examination: 1. Automated exposure control 2. Adjustment of the mA and/or kV according to patient size 3. Use of iterative reconstruction technique. Comparison: Chest CTA 04/28/[address] chest abdomen pelvis exam April 13, 2018 CHEST: Findings: Previously seen bilateral axillary lymphadenopathy has decreased. Largest remaining left axillary node measures about 1 cm short axis dimension. There is persistent focus of abnormal density in the posterior aspect of the left main pulmonary artery located at the periphery estimated about 1.4 cm x 2.2 cm in axial oblique dimensions by 2.4 cm cm which is fairly similar, pulmonary arteries not as well opacified on this exam. Some what amorphous density of the left hilar region with associated perihilar bronchial wall thickening is similar. Small quantity of pericardial fluid is similar. There is again ectatic ascending thoracic aorta about 3.9 cm. There is again left internal jugular port catheter. There is no new pulmonary nodularity. IMPRESSION: 1. Previously seen bilateral axillary lymphadenopathy has decreased. Amorphous left perihilar density with associated bronchial wall thickening is similar as is focus of masslike density in the posterior left main pulmonary artery. There is no new pulmonary nodularity. ABDOMEN: FINDINGS: Pelvis was not imaged. Previously seen retroperitoneal lymphadenopathy has overall decreased, no significantly enlarged nodes identified. Largest remaining left intraperitoneal node measures about 0.8 cm short axis dimension. There is again inferior vena cava filter, stable appearance. There is no adrenal nodularity. No new abnormality is identified liver, spleen, pancreas. Gallbladder is present without obvious intraluminal abnormality by CT. There is multilevel lumbar facet degenerative change. There is lumbar levoscoliosis. There is multilevel degenerative disc disease. There is at least mild spinal stenosis such as L2-3 and also lateral recess stenosis such as on the left at L4-5 and left greater than right at L3-4. There is similar degree of superior T12 vertebral body height loss. There is retained stool in the colon. There is no free fluid or free air. IMPRESSION: 1. Previously seen retroperitoneal lymphadenopathy has decreased, no new significantly enlarged nodes identified. Electronically signed by: Cali Das MD (07/10/2018 1:05 PM) [facility]
--- NOTE | 2018-07-10 13:27 | RAD ---
MRI Brain with and without contrast History: Lung cancer Technique: Multiplanar, multi sequential pre and postcontrast MR imaging was performed of the brain. Comparison: April 18, 2018 Findings: There is residual signal abnormality of the left temporal lobe at site of previously seen mass, some inherent T1 shortening more centrally and mild enhancement at the periphery. This in greatest dimension measures about 1.4 cm AP by 1.3 cm transverse by 1.3 cm cc. Previously this measured about 2 cm AP by 2.2 cm transverse by about 1.6 cm cc. Degree of associated more central enhancement has likely decreased. There is again associated hemosiderin deposition. No new abnormal intracranial enhancement is identified. Previously seen edema about the left temporal lesion has significantly decreased, mild residual. Ventricular size is within normal limits. There is other minimal T2 and FLAIR hyperintense signal abnormality of the supratentorial periventricular white matter greatest near the right frontal horn overall unchanged. There is mild generalized supratentorial involutional change. There is preservation of the major arterial intracranial flow voids at the skull base. There has been lens surgery bilaterally. There is patchy very mild bilateral ethmoid air cell mucosal thickening. Mastoid air cells are aerated. There is preservation of marrow signal of the clivus. There is empty sella as seen previously. Impression: 1. There is residual mass of the left temporal lobe with associated hemorrhage although smaller in size and associated vasogenic edema has significantly decreased. No new abnormal intracranial enhancement is identified. Electronically signed by: Cali Das MD (07/10/2018 1:22 PM) [facility]
[2018-07-10] MEDS ORDERED: HEPARIN PF 500 UNIT/5 ML DISP.SYRIN. IV ONE ×2 (14:30→14:31)
[2018-07-10 14:40] VITALS: BP 106/61
--- NOTE | 2018-07-10 14:48 | NUR ---
CT hydration complete. pt had both CT and MRI done today. left chest port de-accessed, flushed with 500 units of heparin per protocol. tolerating po well. ambulated to BR w/o problem. out to vehicle per w/c. to drive her home.
== END 2018-07-10 14:45 | disposition home or self-care (01) ==
LOC: MRI 07:23
PROVIDERS: ATTEND Internal Medicine Hematology & Oncology
DX: M48.061 Spinal stenosis, lumbar region without neurogenic claudication (principal); M51.36 Other intervertebral disc degeneration, lumbar region; Z85.118 Personal history of other malignant neoplasm of bronchus and lung; Z85.3 Personal history of malignant neoplasm of breast
CPT/HCPCS: 70553; 71260; 74160; A9585; Q9966; Q9967

== ENCOUNTER → 2018-10-09 | Outpatient (CLI) | payer BC ==
[~2018-10-09] MED LIST changes: +ACET325T9 PO; +ALEC150C PO; -AMLO2.5T3 PO; +AMLO2.5T5 PO; +AMLO5TAB10 PO; -AMLO5TAB7 PO; +CALC-30 PO; +CONTRAST GIVEN. MC PRN; +DOCU100C28 PO; +EDOX60TA PO; +IOHEXOL 240 MG/ML 50ML VIAL. PO ONE; +POLY17PO29 PO
--- NOTE | 2018-10-09 11:28 | RAD ---
CT study chest and abdomen and pelvis without contrast INDICATIONS: Right breast cancer and left lung cancer. Brain metastasis. Follow-up study. COMPARISON: July 10, 2018. TECHNIQUE: Non IV contrast helical CT scanning of the chest and abdomen and pelvis was performed. GI contrast was administered per mouth. PQRS compliance Statement One or more of the following individualized dose reduction techniques were utilized for this study: 1. Automated exposure control 2. Adjustment of the mA and/or kV according to patient size 3. Use of iterative reconstruction technique CHEST CT: The right breast is surgically absent. Right axillary lymph nodes are stable. More prominent left axillary lymph nodes are seen which are also stable. No enlarging mediastinal lymphadenopathy is evident. Evaluation for hilar lymphadenopathy is difficult without IV contrast. Evaluation of the posterior left main pulmonary artery mass seen previously is difficult to evaluate without contrast. There is some calcification in this area however. Therefore, this could be secondary to calcification of tumor thrombus after treatment or calcification of bland thrombus. Calcified atheromatous disease of the coronary arteries is seen. The heart size is at the upper limits of normal. No pericardial effusion is seen. There is ectasia of the ascending aorta which is stable. Volume loss of the left lung field is seen which is unchanged. This could be due to previous partial pneumonectomy. Again seen is left perihilar groundglass lung infiltrate which has not progressed and may represent radiation pneumonitis. No new lung infiltrate or new lung nodule is evident. No pleural effusion or pneumothorax is seen. The left lower lobe bronchus is truncated related to a left lower lobe lobectomy. Proximal right bronchial tree is patent. Again seen is a mild compression deformity of the T12 vertebral body which is unchanged. No lytic process is seen. IMPRESSION: Stable chest CT. ABDOMEN AND PELVIS CT: Evaluation for hepatic metastasis is difficult without IV contrast. No obvious hepatic mass is seen otherwise. The spleen is not enlarged. The pancreas is homogeneous in appearance on this noncontrast study. The gallbladder is normal. No extrahepatic biliary ductal dilatation is seen. No adrenal mass is evident. No hydronephrosis or hydroureter is seen on either side. No urinary tract stone is evident. No renal mass is seen on either side on this noncontrast study. Urinary bladder is not distended. No uterine mass is evident. No dominant ovarian cyst or mass is evident. A large amount of fecal retention is seen within the rectum. There is mild wall thickening of the rectum and mild perirectal inflammatory changes which may represent proctitis. There is a moderate amount of fecal retention throughout the rest of the colon. The appendix is normal. Terminal ileum is unremarkable. No obstructive bowel pattern is seen. No free air or free fluid or mesenteric edema is evident. No focal aneurysmal dilatation of the abdominal aorta is seen. No enlarging abdominal lymphadenopathy is evident. Small retroperitoneal lymph nodes seen previously are unchanged. No enlarged pelvic lymphadenopathy is evident. IVC filter is again evident. No lytic process is seen. IMPRESSION: Proctitis. Significant fecal retention within the rectum and colon. No other acute abnormality of the abdomen or pelvis is seen. Stable small retroperitoneal lymph nodes. No significantly enlarged abdominal or pelvic lymphadenopathy is evident. Electronically signed by: Imtiaz King MD (10/09/2018 11:25 AM) [id number]
== END | disposition home or self-care (01) ==
LOC: EDBD → CT 07:40
PROVIDERS: ATTEND Internal Medicine Hematology & Oncology
DX: C50.011 Malignant neoplasm of nipple and areola, right female breast (principal); C34.92 Malignant neoplasm of unspecified part of left bronchus or lung; K62.89 Other specified diseases of anus and rectum; K59.00 Constipation, unspecified
CPT/HCPCS: 71250; 74176; Q9966

== ENCOUNTER → 2018-10-30 | Outpatient (CLI) | payer BC ==
[~2018-10-30] MED LIST changes: -CONTRAST GIVEN. MC PRN; -IOHEXOL 240 MG/ML 50ML VIAL. PO ONE
--- NOTE | 2018-10-30 20:03 | [facility] ---
2 view abdomen pelvis HISTORY: Constipation Upright and supine AP views and pelvis There is air and stool scattered throughout the colon. There is a relative paucity of small bowel gas. There is no evidence of free air. There is distention the rectal vault with stool. There is an IVC filter in place. IMPRESSION: Constipation and fecal impaction. Electronically signed by: Pasquale Navarrete III, MD (10/30/2018 8:00 PM) [facility]
== END | disposition home or self-care (01) ==
LOC: EDBD → KCIC 13:37
PROVIDERS: ATTEND Internal Medicine
DX: K59.00 Constipation, unspecified (principal)
CPT/HCPCS: 74021

== ENCOUNTER 2018-11-28 14:26 | Emergency (ER) | payer BC ==
[~2018-11-28] VITALS: Ht 175.3 cm; Wt 75.7 kg
[~2018-11-28 14:26] MED LIST changes: -ACET325T9 PO; -ALEC150C PO; -CALC-30 PO; -DOCU100C28 PO; -EDOX60TA PO; -POLY17PO29 PO
[2018-11-28] MEDS ORDERED: DIPHTH,PERTUSS(ACELL),TET TOX 0.5 ML DISP.SYRIN. VAX IM ONE (15:00)
[2018-11-28] MEDS: fentaNYL PF VIAL 100 MCG/2 ML VIAL IV ONE (15:11)
[2018-11-28 15:19] LABS: BASO # 0.1 x10^3/uL (0.0-0.2); BASO % 1 % (0-3); EOS # 0.3 x10^3/uL (0.0-0.7); EOS % 3 % (0-3); HEMOGLOBIN 8.5 g/dL (12.0-15.5); LYMPH # 2.4 x10^3/uL (1.0-4.8); LYMPH % 26 % (24-48); MEAN CORPUSCULAR HEMOGLOBIN 30 pg (25-35); MEAN CORPUSCULAR HGB CONC 34 g/dL (31-37); MEAN CORPUSCULAR VOLUME 88 fL (79-100); MONO # 0.8 x10^3/uL (0.0-1.1); MONO % 8 % (0-9); NEUT # 5.8 x10^3uL (1.8-7.7); NEUT % 62 % (31-73); PLATELET COUNT 201 x10^3/uL (140-400); RED BLOOD COUNT 2.83 x10^6/uL (3.50-5.40); RED CELL DISTRIBUTION WIDTH 17.6 % (11.5-14.5); WHITE BLOOD COUNT 9.3 x10^3/uL (4.0-11.0)
[2018-11-28 15:23] LABS: CALCIUM 9.3 mg/dL (8.5-10.1); CREATININE 1.4 mg/dL (0.6-1.0); GFR 36.5; POTASSIUM 4.2 mmol/L (3.5-5.1)
--- NOTE | 2018-11-28 15:25 | RAD ---
Left knee, 3 views, 11/28/2018: HISTORY: Fall at home There is mild spurring at the knee joint and at the patellofemoral articulation. No fracture or dislocation is identified. There is moderate subcutaneous edema, most extensive anteriorly. IMPRESSION: 1. Mild degenerative change. 2. No acute bony abnormality is detected. Electronically signed by: Fady Arias MD (11/28/2018 3:22 PM) [facility]
[2018-11-28 15:35] LABS: PROTHROMBIN TIME PATIENT 24.1 SEC (11.7-14.0)
--- NOTE | 2018-11-28 15:46 | RAD ---
CT head and cervical spine without contrast History: Head injury, blood thinner, fall Technique: Noncontrast CT imaging was performed of the head and cervical spine. Multiplanar reconstruction images are submitted. Exposure: One or more of the following individualized dose reduction techniques were utilized for this examination: 1. Automated exposure control 2. Adjustment of the mA and/or kV according to patient size 3. Use of iterative reconstruction technique. Head CT Comparison: February 12, 2018 Findings: There is no evidence of acute intracranial hemorrhage. There is no new intra-axial mass effect or midline shift. There is mild volume loss/encephalomalacia at site of previous seen left temporal infarct with cortical involvement. There is mild generalized supratentorial involutional change, ventricular size considered within normal limits. There is some atherosclerotic calcification carotid siphons bilaterally. Visualized paranasal sinuses and mastoid air cells are aerated. There is left ryan bullosa. No acute calvarial abnormality is identified. Impression: 1. No acute intracranial abnormality is identified. 2. 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 Cervical spine CT Comparison: None Findings: No acute cervical spine fracture is identified. Vertebral body stature and AP alignment are within normal limits. Atlanto-axial distance is within normal limits. There is appropriate alignment of lateral masses of C1 relative to C2. Occipital condylar-C1 relationship is maintained. There is multilevel facet degenerative change, also uncovertebral degenerative change greatest on the right at C3-C4 and bilaterally at C5-6 and C6-7. There is moderate to severe narrowing of the right C3-4 neural foramen, [id number] narrowing on the left at C5-6 and mild narrowing bilaterally at C6-7 right greater than left. There is likely central canal stenosis about 8 to 9 mm at C6-7 by disc osteophyte complex. There is also likely mild spinal stenosis about 9 mm at C5-6 in part by minimal bulge. There is fairly advanced degenerative disc disease at C6-7 and minimally at C5-6, mild spondylosis at these levels. There is atherosclerotic calcification of the carotid arteries in the neck bilaterally. There is a left internal jugular catheter not fully included. There is degree of fusion of the right C3-4 facet articulation. Impression: 1. No acute cervical spine fracture is identified. 2. There is degenerative change disc disease and spondylosis greatest at C6-7. There is mild spinal stenosis C5-6 and C6-7. There is neural foramina compromise due to facet and uncovertebral degenerative change change greatest on the right at C3-4. Electronically signed by: Cali Das MD (11/28/2018 3:43 PM) [id number]
--- NOTE | 2018-11-28 16:32 | EKG ---
[facility] [address] [place] [id number] Test Date: 2018-11-28 Test Time: 15:06:52 Pat Name: PRICILLA ARIAS Department: Room: Gender: F Pourer Off: : 1940 Requested By: KEYA ZARAGOZA Order Number: [id number] Reading MD: Measurements Intervals Gillespie Rate: 64 P: -23 NC: 190 QRS: -15 QRSD: 96 T: 10 QT: 428 QTc: 446 Interpretive Statements SINUS RHYTHM LEFTWARD AXIS NO SPECIFIC ECG ABNORMALITIES RI6.01 Unconfirmed report No previous ECG available for comparison
[2018-11-28] MEDS: LIDOCAINE WITH 8.4% SOD BICARB 3 ML DISP.SYRIN. INJ ONE (16:48)
[2018-11-28] MEDS: MORPHINE SULFATE 10 MG/ML VIAL. IV ONE (16:49)
[2018-11-28] MEDS: ONDANSETRON PF 4 MG/2 ML VIAL. IV ONE (16:49)
--- NOTE | 2018-11-28 17:22 | PHYS DOC ---
Past Medical History Past Medical History: Anxiety, Cancer, Depression Additional Past Medical Histor: R BREAST CANCER, BRAIN CANCER - TUMOR Past Surgical History: Cancer Surgery Additional Past Surgical Histo: Rt mastectomy, LEFT LOWER LOBECTOMY Alcohol Use: None Drug Use: None Adult General Chief Complaint Chief Complaint: MECHANICAL FALL HPI HPI Patient is a 78 year old female who presents to be evaluated status post falling. Patient states she stubbed her left toe when ambulating in her mother's house, she states she stubbed her toe and fell forward landing on her left knee as well as forehead. Denies any loss of consciousness. She is complaining of 8 out of 10 left knee pain, left upper eyebrow laceration. She states her pain on the left knee is worse on range of motion. She states she is on a blood thinner but she doesn't know the name. She has history of lung cancer and DVT hence the reason she is on a blood thinner. Review of Systems Review of Systems Constitutional: Denies fever or chills [] Eyes: Denies change in visual acuity, redness, or eye pain [] HENT: Denies nasal congestion or sore throat [] Respiratory: Denies cough or shortness of breath [] Cardiovascular: No additional information not addressed in HPI [] GI: Denies abdominal pain, nausea, vomiting, bloody stools or diarrhea [] : Denies dysuria or hematuria [] Musculoskeletal: reports left knee pain. Integument: Left upper eyebrow laceration. Neurologic: Denies headache, focal weakness or sensory changes [] All other systems were reviewed and found to be within normal limits, except as documented in this note. Current Medications Current Medications Current Medications Medications (Trade) Dose Ordered Sig/Elmer Start Time Stop Time Status Last Admin Dose Admin Diphtheria/ Tetanus/Acell Pertussis (Boostrix) 0.5 ml ONCE ONCE 11/28/18 15:00 11/28/18 15:01 DC Fentanyl Citrate (Fentanyl 2ml Vial) 50 mcg 1X ONCE 11/28/18 15:00 11/28/18 15:01 DC 11/28/18 15:11 50 MCG Lidocaine/Sodium Bicarbonate (Buffered Lidocaine 1%) 3 ml 1X ONCE 11/28/18 16:00 11/28/18 16:02 DC 11/28/18 16:48 3 ML Morphine Sulfate (Morphine Sulfate) 5 mg 1X ONCE 11/28/18 16:45 5/21/19 16:46 DC 11/28/18 16:49 5 MG Ondansetron HCl (Zofran) 4 mg 1X ONCE 11/28/18 16:45 11/28/18 16:46 DC 11/28/18 16:49 4 MG Allergies Allergies Allergies Coded Allergies Type Severity Reaction Last Updated Verified Penicillins Allergy Intermediate hives 11/18/17 Yes Sulfa (Sulfonamide Antibiotics) Allergy Intermediate RASH 11/18/17 Yes acetaminophen Allergy Intermediate hives 11/18/17 Yes adhesive tape Allergy Intermediate SKIN PROBLEM 11/18/17 Yes Physical Exam Physical Exam Constitutional: Well developed, well nourished, no acute distress, non-toxic appearance. [] HENT: Normocephalic, atraumatic, bilateral external ears normal, oropharynx moist, no oral exudates, nose normal. [] Eyes: PERRLA, EOMI, conjunctiva normal, no discharge. [] Neck: Normal range of motion, no tenderness, supple, no stridor. [] Cardiovascular:Heart rate regular rhythm, no murmur [] Lungs & Thorax: Bilateral breath sounds clear to auscultation [] Abdomen: Bowel sounds normal, soft, no tenderness, no masses, no pulsatile masses. [] Skin: Warm, dry, no erythema, no rash. [] Left upper eyebrow with a laceration approximately 2 cm long. Back: No tenderness, no CVA tenderness. [] Extremities: Left knee with moderate swelling and ecchymosis. Slightly Limited range of motion to the left knee due to pain. No laxity. +2 left pedal pulse. Cap refill less than 2 seconds the left. Neurologic: Alert and oriented X 3, normal motor function, normal sensory function, no focal deficits noted. [] Psychologic: Affect normal, judgement normal, mood normal. [] Current Patient Data Vital Signs Vital Signs Date Time Temp Pulse Resp B/P (MAP) Pulse Ox O2 Delivery O2 Flow Rate FiO2 11/28/18 16:49 20 95 Room Air 11/28/18 14:37 98.0 72 150/66 (94) 98.0 Lab Values Laboratory Tests Test 11/28/18 15:00 White Blood Count 9.3 x10^3/uL (4.0-11.0) Red Blood Count 2.83 x10^6/uL (3.50-5.40) L Hemoglobin 8.5 g/dL (12.0-15.5) L Hematocrit 25.0 % (36.0-47.0) L Mean Corpuscular Volume 88 fL (79-100) Mean Corpuscular Hemoglobin 30 pg (25-35) Mean Corpuscular Hemoglobin Concent 34 g/dL (31-37) Red Cell Distribution Width 17.6 % (11.5-14.5) H Platelet Count 201 x10^3/uL (140-400) Neutrophils (%) (Auto) 62 % (31-73) Lymphocytes (%) (Auto) 26 % (24-48) Monocytes (%) (Auto) 8 % (0-9) Eosinophils (%) (Auto) 3 % (0-3) Basophils (%) (Auto) 1 % (0-3) Neutrophils # (Auto) 5.8 x10^3uL (1.8-7.7) Lymphocytes # (Auto) 2.4 x10^3/uL (1.0-4.8) Monocytes # (Auto) 0.8 x10^3/uL (0.0-1.1) Eosinophils # (Auto) 0.3 x10^3/uL (0.0-0.7) Basophils # (Auto) 0.1 x10^3/uL (0.0-0.2) Prothrombin Time 24.1 SEC (11.7-14.0) H Prothrombin Time INR 2.2 (0.8-1.1) H PTT 36 SEC (24-38) Sodium Level 143 mmol/L (136-145) Potassium Level 4.2 mmol/L (3.5-5.1) Chloride Level 107 mmol/L (98-107) Carbon Dioxide Level 29 mmol/L (21-32) Anion Gap 7 (6-14) Blood Urea Nitrogen 32 mg/dL (7-20) H Creatinine 1.4 mg/dL (0.6-1.0) H Estimated GFR (Cockcroft-Gault) 36.5 Glucose Level 127 mg/dL (70-99) H Calcium Level 9.3 mg/dL (8.5-10.1) Laboratory Tests 11/28/18 15:00 Laboratory Tests 11/28/18 15:00 EKG EKG [] Radiology/Procedures Radiology/Procedures []PROCEDURE: CT HEAD AND CERVICAL SPINE WO CT head and cervical spine without contrast History: Head injury, blood thinner, fall Technique: Noncontrast CT imaging was performed of the head and cervical spine. Multiplanar reconstruction images are submitted. Exposure: One or more of the following individualized dose reduction techniques were utilized for this examination: 1. Automated exposure control 2. Adjustment of the mA and/or kV according to patient size 3. Use of iterative reconstruction technique. Head CT Comparison: February 12, 2018 Findings: There is no evidence of acute intracranial hemorrhage. There is no new intra-axial mass effect or midline shift. There is mild volume loss/encephalomalacia at site of previous seen left temporal infarct with cortical involvement. There is mild generalized supratentorial involutional change, ventricular size considered within normal limits. There is some atherosclerotic calcification carotid siphons bilaterally. Visualized paranasal sinuses and mastoid air cells are aerated. There is left ryan bullosa. No acute calvarial abnormality is identified. Impression: 1. No acute intracranial abnormality is identified. 2. 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 Cervical spine CT Comparison: None Findings: No acute cervical spine fracture is identified. Vertebral body stature and AP alignment are within normal limits. Atlanto-axial distance is within normal limits. There is appropriate alignment of lateral masses of C1 relative to C2. Occipital condylar-C1 relationship is maintained. There is multilevel facet degenerative change, also uncovertebral degenerative change greatest on the right at C3-C4 and bilaterally at C5-6 and C6-7. There is moderate to severe narrowing of the right C3-4 neural foramen, [id number] narrowing on the left at C5-6 and mild narrowing bilaterally at C6-7 right greater than left. There is likely central canal stenosis about 8 to 9 mm at C6-7 by disc osteophyte complex. There is also likely mild spinal stenosis about 9 mm at C5-6 in part by minimal bulge. There is fairly advanced degenerative disc disease at C6-7 and minimally at C5-6, mild spondylosis at these levels. There is atherosclerotic calcification of the carotid arteries in the neck bilaterally. There is a left internal jugular catheter not fully included. There is degree of fusion of the right C3-4 facet articulation. Impression: 1. No acute cervical spine fracture is identified. 2. There is degenerative change disc disease and spondylosis greatest at C6-7. There is mild spinal stenosis C5-6 and C6-7. There is neural foramina compromise due to facet and uncovertebral degenerative change change greatest on the right at C3-4. Electronically signed by: Jer Das MD (11/28/2018 3:43 PM) [facility] DICTATED and SIGNED BY: JER DAS MD DATE: 11/28/18 1543 PROCEDURE: KNEE LEFT 3V Left knee, 3 views, 11/28/2018: HISTORY: Fall at home There is mild spurring at the knee joint and at the patellofemoral articulation. No fracture or dislocation is identified. There is moderate subcutaneous edema, most extensive anteriorly. IMPRESSION: 1. Mild degenerative change. 2. No acute bony abnormality is detected. Electronically signed by: Fady Gutierrez MD (11/28/2018 3:22 PM) [facility] DICTATED and SIGNED BY: FADY GUTIERREZ MD DATE: 11/28/18 1522 Laceration/Wound Repair Wound Location: Left upper eyebrow Wound's Depth, Shape: Horizontal Wound Length (cm): Approximately 2 cm Wound Explored: clean Irrigated w/ Saline (ccs): 20 Betadine Prep?: Yes Anesthesia: 1% buffered lidocaine Volume Anesthetic (ccs): Approximately 1.5 Wound Repaired With: Dissolvable gut Suture Size/Type: 6.0/interrupted sutures Number of Sutures: 5 Course & Med Decision Making Course & Med Decision Making Pertinent Labs and Imaging studies reviewed. (See chart for details) This is a 78-year-old female patient presenting to the ED today to be evaluated status post falling complaining of left knee pain. No loss of consciousness. Hit her head on the ground. She is on unknown blood thinner. CT of the head and cervical spine are negative for any acute findings. Left knee x-rays are negative for any acute findings. Patient had a laceration on the left eyebrow that was closed with dissolvable sutures. Tetanus is up-to-date. Patient states she is able to get up and move. She was discharged to home. Left knee was wrapped with an Santhosh bandage by the ED RN, neurovascular exam is intact. Ice elevation encouraged. Follow-up with primary care doctor in the course of this week. Dragon Disclaimer Dragon Disclaimer This electronic medical record was generated, in whole or in part, using a voice recognition dictation system. Departure Departure Impression: Primary Impression: Fall from standing Additional Impressions: Contusion, knee Laceration of eyebrow, left Head contusion Disposition: 01 HOME, SELF-CARE Condition: STABLE Referrals: ALEXI LADD MD (PCP) follow up in the course of this week Patient Instructions: Contusion, Fall Prevention and Home Safety Additional Instructions: You were evaluated in the emergency room after falling. Your CT of the head and cervical spine are negative for any acute findings. Your left knee x-rays negative for any fracture. Use the Santhosh bandage provided on the knee until the swelling goes down. Continue to ice and elevate the knee. Follow-up with your own doctor in the course of this week. Keep the laceration site clean and dry. Apply Neosporin to the area twice a day. Monitor the area for signs of infection including increased redness, warmth or yellow drainage from the area and return to the emergency room or see your doctor if they occur. [] Problem Qualifiers Primary Impression: Fall from standing Encounter type: initial encounter Qualified Codes: W19.XXXA - Unspecified fall, initial encounter Additional Impressions: Contusion, knee Encounter type: initial encounter Laterality: left Qualified Codes: S80.02XA - Contusion of left knee, initial encounter Laceration of eyebrow, left Encounter type: initial encounter Qualified Codes: S01.112A - Laceration without foreign body of left eyelid and periocular area, initial encounter Head contusion Encounter type: initial encounter Contusion of head detail: eyelid Laterality: left Qualified Codes: S00.12XA - Contusion of left eyelid and periocular area, initial encounter KEYA ZARAGOZA APRN November 28, 2018 17:22
[2018-11-28 17:30] VITALS: BP 118/58
== END 2018-11-28 17:55 | disposition home or self-care (01) ==
LOC: EDBD → ER 14:26
DX: S01.112A Laceration without foreign body of left eyelid and periocular area, initial encounter (principal); S80.02XA Contusion of left knee, initial encounter; F41.9 Anxiety disorder, unspecified; F32.9 Major depressive disorder, single episode, unspecified; Z90.11 Acquired absence of right breast and nipple; Z88.0 Allergy status to penicillin; Z88.2 Allergy status to sulfonamides; Z88.6 Allergy status to analgesic agent; Z88.8 Allergy status to other drugs, medicaments and biological substances; W01.0XXA Fall on same level from slipping, tripping and stumbling without subsequent striking against object, initial encounter; Y93.89 Activity, other specified; Y92.009 Unspecified place in unspecified non-institutional (private) residence as the place of occurrence of the external cause; Y99.8 Other external cause status
CPT/HCPCS: 36415; 70450; 72125; 73562; 80048; 85025; 85610; 85730; 93005; 99285; J2270; J2405; J3010

== ENCOUNTER 2018-11-30 12:32 | Inpatient (IN) | payer BC ==
[~2018-11-30] VITALS: Ht 175.3 cm; Wt 84.9 kg
[2018-11-30 12:00] VITALS: BP 139/42
--- NOTE | 2018-11-30 14:57 | RAD ---
Portable left knee, 3 views, 11/30/2018: HISTORY: Fall, pain, possible septic joint No fracture or dislocation is identified. There is mild joint space narrowing medially. There is mild marginal spurring at the knee joint and at the patellofemoral articulation. There is moderate subcutaneous edema. Soft tissue swelling in the suprapatellar bursa region suggests the presence of a joint effusion. IMPRESSION: 1. Degenerative change. 2. No acute bony abnormality. 3. Probable joint effusion Electronically signed by: Fady Arias MD (11/30/2018 2:55 PM) [facility]
[2018-11-30 15:00] VITALS: BP 139/42
--- NOTE | 2018-11-30 15:00 | NUR ---
SHAR from Dr. Horowitz's office, arrived to unit by wc accompanied by . A&Ox3, with some forgetfulness reported by the pt's (baseline, related to brain tumor). Left knee swollen and bruised, abrasions with open blisters to left knee measured, pictured and cleaned with wound wash, xeroform and foam applied, see wound intervention. Denies pain unless moving the left leg, states she has been taking plain tylenol at home with some relief. VSS upon arrival, admission intervention done. Informed pt and her of current POC. Hospital policies reviewed. Pt's megan Marie advised to bring home meds for review as pt is on special "chemo pills". Side rails up x2, call light within reach, will continue to monitor.
[2018-11-30 15:34] LABS: BASO # 0.1 x10^3/uL (0.0-0.2); BASO % 1 % (0-3); EOS # 0.1 x10^3/uL (0.0-0.7); EOS % 1 % (0-3); HEMOGLOBIN 7.5 g/dL (12.0-15.5); LYMPH # 2.5 x10^3/uL (1.0-4.8); LYMPH % 24 % (24-48); MEAN CORPUSCULAR HEMOGLOBIN 30 pg (25-35); MEAN CORPUSCULAR HGB CONC 34 g/dL (31-37); MEAN CORPUSCULAR VOLUME 89 fL (79-100); MONO # 1.4 x10^3/uL (0.0-1.1); MONO % 14 % (0-9); NEUT # 6.4 x10^3uL (1.8-7.7); NEUT % 62 % (31-73); PLATELET COUNT 178 x10^3/uL (140-400); RED BLOOD COUNT 2.48 x10^6/uL (3.50-5.40); RED CELL DISTRIBUTION WIDTH 17.6 % (11.5-14.5); WHITE BLOOD COUNT 10.4 x10^3/uL (4.0-11.0)
[2018-11-30 15:44] LABS: ALBUMIN 3.5 g/dL (3.4-5.0); ALBUMIN/GLOBULIN RATIO 1.1 (1.0-1.7); C-REACTIVE PROTEIN 41.7 mg/L (0-3.3); CALCIUM 9.2 mg/dL (8.5-10.1); CREATININE 1.3 mg/dL (0.6-1.0); GFR 39.7; POTASSIUM 3.9 mmol/L (3.5-5.1); TOTAL BILIRUBIN 1.5 mg/dL (0.2-1.0); TOTAL PROTEIN 6.8 g/dL (6.4-8.2)
[2018-11-30 15:51] LABS: PROTHROMBIN TIME PATIENT 14.9 SEC (11.7-14.0)
[2018-11-30] MEDS ORDERED: ALEC150C PO (16:27)
[2018-11-30] MEDS ORDERED: POLY17PO29 PO (16:27)
[2018-11-30] MEDS ORDERED: CALC-30 PO (16:27)
[2018-11-30] MEDS ORDERED: DOCU100C28 PO (16:27)
[2018-11-30] MEDS ORDERED: EDOX60TA PO (16:27)
[2018-11-30] MEDS ORDERED: ACET325T9 PO (16:29)
[2018-11-30] MEDS ORDERED: DOCUSATE SODIUM 100 MG CAPSULE. PO PRN (16:30)
[2018-11-30] MEDS ORDERED: POLYETHYLENE GLYCOL 3350 17 GM PACKET. PO PRN (16:33)
[2018-11-30] MEDS ORDERED: MORPHINE SULFATE 2 MG/ML VIAL. IV PRN (18:30)
[2018-11-30] MEDS ORDERED: HYDROcodone/APAP 7.5/325MG 1 TAB TABLET PO PRN (18:30)
[2018-11-30 19:00] VITALS: BP 125/50
--- NOTE | 2018-11-30 19:00 | NUR ---
Wound Care: Wound care consult for L knee abrasion/blisters after a fall on 11/28. L knee edematous and bruised, blisters developed around knee, one open around abrasion (see wound intervention). Wound cleansed with wound wash, pictured and measured. Xeroform and foam applied to L knee. Pt also has stitches on left eyebrow that were place by ED on 11/28 and appear to be healing well. No other wound noted upon assessment. POC communicated with CANDIE Peralta.
[2018-11-30] MEDS: [UNRECOGNIZED DRUG - OTHER] PO SCH (20:47)
[2018-11-30] MEDS: OXYBUTYNIN CHLORIDE 5 MG TABLET PO SCH (20:48)
[2018-11-30] MEDS: ACETAMINOPHEN 325 MG TABLET. PO PRN (21:04)
--- NOTE | 2018-11-30 21:48 | PDOC ---
PROGRESS NOTES Subjective Subjective Problems overnight: Objective Vital Signs Vital Signs Date Time Temp Pulse Resp B/P (MAP) Pulse Ox O2 Delivery O2 Flow Rate FiO2 11/30/18 19:00 99.2 78 18 125/50 (75) 94 Room Air 99.2 Labs Laboratory Tests Test 11/30/18 15:00 White Blood Count 10.4 x10^3/uL (4.0-11.0) Red Blood Count 2.48 x10^6/uL (3.50-5.40) Hemoglobin 7.5 g/dL (12.0-15.5) Hematocrit 22.0 % (36.0-47.0) Mean Corpuscular Volume 89 fL (79-100) Mean Corpuscular Hemoglobin 30 pg (25-35) Mean Corpuscular Hemoglobin Concent 34 g/dL (31-37) Red Cell Distribution Width 17.6 % (11.5-14.5) Platelet Count 178 x10^3/uL (140-400) Neutrophils (%) (Auto) 62 % (31-73) Lymphocytes (%) (Auto) 24 % (24-48) Monocytes (%) (Auto) 14 % (0-9) Eosinophils (%) (Auto) 1 % (0-3) Basophils (%) (Auto) 1 % (0-3) Neutrophils # (Auto) 6.4 x10^3uL (1.8-7.7) Lymphocytes # (Auto) 2.5 x10^3/uL (1.0-4.8) Monocytes # (Auto) 1.4 x10^3/uL (0.0-1.1) Eosinophils # (Auto) 0.1 x10^3/uL (0.0-0.7) Basophils # (Auto) 0.1 x10^3/uL (0.0-0.2) Erythrocyte Sedimentation Rate 12 (0-25) Prothrombin Time 14.9 SEC (11.7-14.0) Prothromb Time International Ratio 1.2 (0.8-1.1) Activated Partial Thromboplast Time 31 SEC (24-38) Sodium Level 139 mmol/L (136-145) Potassium Level 3.9 mmol/L (3.5-5.1) Chloride Level 100 mmol/L (98-107) Carbon Dioxide Level 30 mmol/L (21-32) Anion Gap 9 (6-14) Blood Urea Nitrogen 30 mg/dL (7-20) Creatinine 1.3 mg/dL (0.6-1.0) Estimated GFR (Cockcroft-Gault) 39.7 BUN/Creatinine Ratio 23 (6-20) Glucose Level 108 mg/dL (70-99) Calcium Level 9.2 mg/dL (8.5-10.1) Total Bilirubin 1.5 mg/dL (0.2-1.0) Aspartate Amino Transf (AST/SGOT) 29 U/L (15-37) Alanine Aminotransferase (ALT/SGPT) 22 U/L (14-59) Alkaline Phosphatase 161 U/L (46-116) C-Reactive Protein, Quantitative 41.7 mg/L (0-3.3) Total Protein 6.8 g/dL (6.4-8.2) Albumin 3.5 g/dL (3.4-5.0) Albumin/Globulin Ratio 1.1 (1.0-1.7) Laboratory Tests Test 11/30/18 15:00 White Blood Count 10.4 x10^3/uL (4.0-11.0) Red Blood Count 2.48 x10^6/uL (3.50-5.40) Hemoglobin 7.5 g/dL (12.0-15.5) Hematocrit 22.0 % (36.0-47.0) Mean Corpuscular Volume 89 fL (79-100) Mean Corpuscular Hemoglobin 30 pg (25-35) Mean Corpuscular Hemoglobin Concent 34 g/dL (31-37) Red Cell Distribution Width 17.6 % (11.5-14.5) Platelet Count 178 x10^3/uL (140-400) Neutrophils (%) (Auto) 62 % (31-73) Lymphocytes (%) (Auto) 24 % (24-48) Monocytes (%) (Auto) 14 % (0-9) Eosinophils (%) (Auto) 1 % (0-3) Basophils (%) (Auto) 1 % (0-3) Neutrophils # (Auto) 6.4 x10^3uL (1.8-7.7) Lymphocytes # (Auto) 2.5 x10^3/uL (1.0-4.8) Monocytes # (Auto) 1.4 x10^3/uL (0.0-1.1) Eosinophils # (Auto) 0.1 x10^3/uL (0.0-0.7) Basophils # (Auto) 0.1 x10^3/uL (0.0-0.2) Erythrocyte Sedimentation Rate 12 (0-25) Prothrombin Time 14.9 SEC (11.7-14.0) Prothromb Time International Ratio 1.2 (0.8-1.1) Activated Partial Thromboplast Time 31 SEC (24-38) Sodium Level 139 mmol/L (136-145) Potassium Level 3.9 mmol/L (3.5-5.1) Chloride Level 100 mmol/L (98-107) Carbon Dioxide Level 30 mmol/L (21-32) Anion Gap 9 (6-14) Blood Urea Nitrogen 30 mg/dL (7-20) Creatinine 1.3 mg/dL (0.6-1.0) Estimated GFR (Cockcroft-Gault) 39.7 BUN/Creatinine Ratio 23 (6-20) Glucose Level 108 mg/dL (70-99) Calcium Level 9.2 mg/dL (8.5-10.1) Total Bilirubin 1.5 mg/dL (0.2-1.0) Aspartate Amino Transf (AST/SGOT) 29 U/L (15-37) Alanine Aminotransferase (ALT/SGPT) 22 U/L (14-59) Alkaline Phosphatase 161 U/L (46-116) C-Reactive Protein, Quantitative 41.7 mg/L (0-3.3) Total Protein 6.8 g/dL (6.4-8.2) Albumin 3.5 g/dL (3.4-5.0) Albumin/Globulin Ratio 1.1 (1.0-1.7) Assessment Assessment POD# [], S/P [] Plan Plan of Care See my dictated note, strongly favor hematoma, no infection Supportive care, longer term discussion on anticoag options given fall hx and IVC filter DELMA DOMINGO MD November 30, 2018 21:48
[2018-11-30 23:00] VITALS: BP 103/43
[2018-12-01 03:00] VITALS: BP 106/48
[2018-12-01] MEDS: ACETAMINOPHEN 325 MG TABLET. PO PRN (05:56)
[2018-12-01 07:00] VITALS: BP 110/42
--- NOTE | 2018-12-01 07:59 | NUR ---
Chart review done. Pt w/ history of brain tumor. Records indicate hx of falls. Pt currently admitted w/ possible L knee sepsis. Pt may benefit from PT/OT Eval and Treat. Please order if agree. Addendum: 12/01/18 at 0759 by MELISSA CHOW OT Amended: Links added.
[2018-12-01 08:07] VITALS: BP 110/42
[2018-12-01] MEDS: OXYBUTYNIN CHLORIDE 5 MG TABLET PO SCH (08:07)
[2018-12-01] MEDS: [UNRECOGNIZED DRUG - OTHER] PO SCH (08:07)
--- NOTE | 2018-12-01 08:44 | PDOC ---
Provider Note Provider Note [id number] ALEXI LADD MD December 01, 2018 08:44
[2018-12-01] MEDS ORDERED: NON FORMULARY ITEM (Losartan/Hydrochlorothiazide (Losartan-Hctz 50-12.5 Mg Tab) 1 EACH) PO SCH (09:00)
[2018-12-01] MEDS ORDERED: CALCIUM CARB/VIT D3 500/200 TABLET. PO SCH (09:00)
[2018-12-01] MEDS ORDERED: hydroCHLOROthiazide 12.5 MG CAPSULE PO SCH (09:00)
[2018-12-01] MEDS ORDERED: LOSARTAN POTASSIUM 50 MG TABLET. PO SCH (09:00)
--- NOTE | 2018-12-01 09:04 | SSS ---
ADMIT DATE: 23-HOUR SUMMARY DATE OF DISCHARGE: 12/01/2018. HOSPITAL SUMMARY: A 78-year-old white female admitted with increasing swelling, pain and ecchymosis in the left knee after a fall 3 days prior to admission. She takes no anticoagulants, and x-rays were done in the ER, which were negative. Attempted arthrocentesis done in the office with no fluid return indicating likely clots present in the knee. Hemoglobin was 7.5, which is stable for her and rest of chemistry profile unremarkable except for elevated BUN of 30, creatinine 1.3. Repeated x-rays again showed no fracture, and she was seen by Dr. Gomez who felt that arthrocentesis or operative joint clean out would be unnecessary at this point and simple observation allow bleeding to reduce would be a more reasonable option. The patient is more comfortable now and is comfortable not to go to rehab, at first to go home for further care. FINAL DIAGNOSES: 1. Hematoma of the left knee secondary to recent trauma. 2. Hypotension, iatrogenic, drug induced. 3. Anemia of chronic disease. OPERATIONS, PROCEDURES, COMPLICATIONS: None. CONSULTATIONS: Dr. Gomez. DISPOSITION: We will stay off the losartan HCT that she takes for now regarding her low blood pressure as well as the Savaysa as she has an IVC filter in place. We will see her in the office in 1 week to consider resuming one or both blood pressure meds and the oral anticoagulant at some point when the risk is outweighed by the benefit. Minimal activity. Elevation, ice several times a day to reduce swelling and [place] 5/325, #20 were given for pain. Prognosis is guarded. ALEXI LADD MD DR: DANNY/stanislaw JOB#: [id number] / [id number]
--- NOTE | 2018-12-01 09:33 | NUR ---
Patient left the building around 0930 in a wheelchair with all of her belongings. Her is at her side. Script for norco given to Gem, her . Discharge paperwork and education was discussed with the patient and her in which they stated understanding. No concerns noted upon discharge. Extra dressings given for left knee wounds and is supposed to get changed every three days. Sutures intact above left eye and dressings on left knee is intact as well. Medications from [facility] were given back to the in two separate bags.
--- NOTE | 2018-12-01 11:23 | CONS ---
DATE OF CONSULTATION: 11/30/2018 REQUESTING PHYSICIAN: Dr. Jennifer Horowitz. REASON FOR CONSULTATION: Left knee pain, bruising and effusion. Apparently concern potentially for a septic joint. LOCATION: She is in room 412. HISTORY OF PRESENT ILLNESS: The patient is an elderly female who had a fall about 2 days ago, actually was evaluated in the Emergency Department and was reevaluated in Dr. Horowitz's office today with swelling and left knee pain and difficulty getting around. The patient has a history of cancer and has been on anticoagulants, originally Eliquis, which was switched over to another new anticoagulant, which was thought to be better suited to her diagnosis of lung cancer and she also has an inferior vena cava filter placed due to risk of blood clots. She has had a history of previous fall and according to her , who was present at the bedside, states that if she is having problems with bleeding or falls that she often needs to get evaluated in the hospital. At this point, she is resting comfortably in bed, although she indicates that her knee is painful with movement and bearing weight and transfers. Her indicates that she is instructed to walk with the assistance of a walker, but often due to her dementia and what not tends to forget to walk around the house and therefore is somewhat unsteady and has a history of falls. PAST MEDICAL HISTORY: Significant for the lung cancer among other medical issues. PAST SURGICAL HISTORY: Significant for the inferior vena cava filter placement, partial lobectomy of her lung. FAMILY HISTORY: Noncontributory. MEDICATIONS: List is reviewed. SOCIAL HISTORY: Lives at home with her . They have some grandchildren that are students in the medical profession. She denies tobacco, alcohol, drug use. REVIEW OF SYSTEMS: Significant for the history of falls, for the dementia and for the recent left knee pain following a fall a couple of days ago. PHYSICAL EXAMINATION: VITAL SIGNS: Per admission sheet. She is afebrile. HEENT: Atraumatic, normocephalic. MUSCULOSKELETAL: She has no tenderness on palpation over the neck or back. She can move the upper extremities, shoulder, elbow and wrist without any problem. No tenderness on palpation. Examination of the left knee reveals significant bruising and swelling. Does not seem to have a large knee effusion, but rather tenderness around the soft tissues of the knee, ligaments are stable. She has minimal range of motion secondary to pain and holds it in a slightly flexed position, but no ligament instability is noted. She has normal examination of the contralateral knee, bilateral hips and ankles with overall intact motor function, distal pulses, sensation and skin in both lower extremities throughout. She does have an area where the knee was attempted aspiration earlier today, but no significant drainage other than abrasion. IMAGING: X-rays from 2 days ago at the Emergency Department show no evidence of fracture, some mild degenerative changes present, however. LABORATORY EXAMINATION: Shows a white count of 9 and 10 respectively from 2 days ago and from today, no shift on her differential was noted. IMPRESSION: 1. Left knee contusion, hematoma and surrounding bruising with pain. 2. History of hypercoagulability due to lung cancer, currently on anticoagulant. 3. Knee hematoma, no sign of infection. TREATMENT PLAN: I discussed at some length with her and her the fact that I am not suspicious at all of any type of infection. I think she likely has bleeding, mostly around, but somewhat in her knee as well and although at attempting to aspirate the knee to avoid some of the pressure that she feels despite being on blood thinners and the bleeding, there is some blood typically in the knee and often small clot in the knee joint itself. Those do not move and are no danger in terms of blood clotting, however, they do plug up the needle used to aspirate. I therefore do not recommend additional aspiration as I think it will just traumatize the area further. Instead, she can ambulate and transfer minimally as tolerated and I would otherwise have her elevate the leg and symptomatic treatment with some ice, elevation and eventually when she can tolerate it, some compression on the area to help decrease some of her swelling. I do not recommend any other intervention and again have no index of suspicion of infection based on her history. Based on some of her 's questions, I did indicate that perhaps down the road, a conversation may be warranted with her oncologist or family physician about the possibility and judgment of potentially modifying or even perhaps discontinuing her anticoagulation regimen if she has a filter, although certainly there are arguments to be made on both sides of this issue, it is certainly a judgment call and I think again deserves more discussion on that note rather than action at this point. Otherwise, I will follow along on an orthopedic basis as necessary. DELMA DOMINGO MD DR: ADY/stanislaw JOB#: [id number] / [id number] ALEXI Dumont MD
== END 2018-12-01 09:30 | disposition home or self-care (01) | DRG 605 ==
LOC: 4 NORTH 12:55
PROVIDERS: ADMIT Family Medicine; ATTEND Family Medicine
DX: S80.02XA Contusion of left knee, initial encounter (principal); W18.39XA Other fall on same level, initial encounter; D63.8 Anemia in other chronic diseases classified elsewhere; I95.9 Hypotension, unspecified; F03.90 Unspecified dementia, unspecified severity, without behavioral disturbance, psychotic disturbance, mood disturbance, and anxiety; I10 Essential (primary) hypertension; Z85.118 Personal history of other malignant neoplasm of bronchus and lung; Z91.81 History of falling; Y93.89 Activity, other specified; Y92.89 Other specified places as the place of occurrence of the external cause; Y99.8 Other external cause status
CPT/HCPCS: 36415; 70450; 72125; 73562; 80048; 80053; 85025; 85610; 85651; 85730; 86140; 93005; J2270; J2405; J3010

== ENCOUNTER → 2019-01-15 | Outpatient (CLI) | payer BC ==
[~2019-01-15] MED LIST changes: +ACET325T9 PO; +ALEC150C PO; +CALC-30 PO; +CONTRAST GIVEN. MC PRN; +DOCU100C28 PO; +EDOX60TA PO; +IOHEXOL 240 MG/ML 50ML VIAL. PO ONE; +POLY17PO29 PO
--- NOTE | 2019-01-15 16:26 | RAD ---
Examination: CT CHEST ABDOMEN PELVIS WO History: Right breast cancer. Brain metastases. Comparison/Correlation: 10/09/2018 CT chest abdomen pelvis with contrast Findings: Axial images of chest, abdomen, and pelvis were obtained with oral contrast only. Sagittal and coronal reformatted images were provided. Left internal jugular infusion port catheter tip terminates within the right atrium. No enlarged thoracic lymph nodes. Right mastectomy is noted. Posterior left perihilar interstitial thickening which may relate to scarring is unchanged. Left axillary lymph nodes are present but not enlarged. These are similar in number and morphology compared to prior exam. No pericardial or pleural effusion. No pulmonary nodule or mass. Liver, spleen, pancreas, and gallbladder fossa are unremarkable. Adrenal glands are normal. No radiopaque collecting system calculi. Inferior vena cava filter is present in the infrarenal level. Urinary bladder is unremarkable. Uterus is unremarkable. Large quantity of stool is present within the colon. Circumferential thickening of the distal rectum described previously is unchanged. No enlarged abdominal or pelvic lymph nodes. Facet joint degenerative changes of the upper lumbar spine noted. T12 superior endplate compression deformity is present. Transitional L5 vertebra is present. Levo convexity of the lumbar spine is present. Impression: No evidence of metastases or lymphadenopathy in the interval. No significant change. Evaluation however may be limited without IV contrast. Right mastectomy. Large quantity of stool and gas in the colon. Circumferential wall thickening of the distal rectum is similar to previous exam. No suspicious inflammatory change or other suspicious finding. PQRS Compliance Statement: One or more of the following individualized dose reduction techniques were utilized for this examination: 1. Automated exposure control 2. Adjustment of the mA and/or kV according to patient size 3. Use of iterative reconstruction technique Electronically signed by: Viktor Jama MD (01/15/2019 4:23 PM) [facility]
== END | disposition home or self-care (01) ==
LOC: CT 09:44
PROVIDERS: ATTEND Internal Medicine Hematology & Oncology
DX: C34.92 Malignant neoplasm of unspecified part of left bronchus or lung (principal); M43.8X4 Other specified deforming dorsopathies, thoracic region; Z90.11 Acquired absence of right breast and nipple; Z85.3 Personal history of malignant neoplasm of breast; Z85.841 Personal history of malignant neoplasm of brain; Z88.0 Allergy status to penicillin; Z88.2 Allergy status to sulfonamides; Z88.8 Allergy status to other drugs, medicaments and biological substances
CPT/HCPCS: 71250; 74176; Q9966

== ENCOUNTER → 2019-02-02 | Outpatient (CLI) | payer BC ==
[~2019-02-02] MED LIST changes: -CONTRAST GIVEN. MC PRN; +GADOTERATE 7.5 MMOL/15ML VIAL. IVP ONE; -IOHEXOL 240 MG/ML 50ML VIAL. PO ONE
--- NOTE | 2019-02-02 13:50 | RAD ---
BRAIN WO/W CONTRAST Date: 02/02/2019 10:30 AM Indication: Metastatic breast cancer Comparison: 07/10/2018. Technique: Multiplanar multisequence MRI of the brain was performed with and without intravenous contrast using the standard protocol. 15 cc Dotarem contrast was administered intravenously during the exam. Findings: Rounded lesion in the left posterior temporal lobe measuring approximately 1.1 cm is unchanged in size from the prior exam when measured in the same fashion. This demonstrates T1 hyperintensity, T2 isointensity centrally with a rim of T2 hypointensity, and gradient susceptibility along the margins. Trace enhancement along the periphery of this lesion. Unable to assess for central enhancement due to intrinsic T1 hyperintensity. Similar surrounding T2/FLAIR hyperintense signal. No new enhancing lesions. No acute infarct. No acute hemorrhage. The ventricles are normal in size and configuration without hydrocephalus. Mild scattered FLAIR hyperintensities in the subcortical and periventricular deep white matter, a nonspecific finding, most commonly seen with chronic small vessel ischemic disease. Mild generalized cerebral and cerebellar findings. The scalp and calvarium are normal. Partial empty sella. No Chiari malformation. The visualized upper cervical spine is normal. The visualized orbits and globes are normal. The visualized paranasal sinuses are clear. The mastoid air cells are clear. Normal flow voids within the vertebral, basilar, and internal carotid arteries indicating patency. IMPRESSION: No significant change in the patient's left posterior temporal lobe lesion. Unchanged surrounding T2/FLAIR hyperintense signal. No new enhancing lesions. Electronically signed by: Cali Seals MD (02/02/2019 1:47 PM) [id number]
== END | disposition home or self-care (01) ==
LOC: MRI 09:37
PROVIDERS: ATTEND Internal Medicine Hematology & Oncology
DX: C79.31 Secondary malignant neoplasm of brain (principal); C34.92 Malignant neoplasm of unspecified part of left bronchus or lung; C50.011 Malignant neoplasm of nipple and areola, right female breast
CPT/HCPCS: 70553; A9575

== ENCOUNTER → 2019-04-17 | Outpatient (CLI) | payer BC ==
[~2019-04-17] MED LIST changes: -GADOTERATE 7.5 MMOL/15ML VIAL. IVP ONE; +OMEP40CA45 PO; -OMEP40CA5 PO; +OXYB5TAB10 PO; -OXYB5TAB7 PO
--- NOTE | 2019-04-17 16:55 | RAD ---
CT study of the chest without contrast Clinical indications: Right breast cancer. Left lung cancer. Follow-up study. COMPARISON: January 15, 2019. TECHNIQUE: Noncontrast helical CT scanning of the chest was performed. Without contrast, the sensitivity to detect organ pathology is decreased. PQRS compliance Statement One or more of the following individualized dose reduction techniques were utilized for this study: 1. Automated exposure control 2. Adjustment of the mA and/or kV according to patient size 3. Use of iterative reconstruction technique FINDINGS: The right breast is surgically absent. No soft tissue mass of the right anterior chest wall is seen. Left axillary and right axillary lymph nodes are unchanged. No enlarging thoracic lymphadenopathy is seen. Heart size is within normal limits. Mild calcified atheromatous disease of the coronary arteries is seen. There is minimal amount of pericardial effusion which may be seen normally. Caliber of the thoracic aorta is 4.0 cm. There is a small amount of left-sided pleural effusion which has developed since the previous study. On image 23 and series 2, there is a small lung nodule within the anterior medial aspect of the left upper lobe measuring 5 mm which is stable. Again seen is soft tissue thickening and perihilar lung infiltrate of the left hilum which is unchanged. This could be related to radiation pneumonitis. The left lower lobe bronchus is truncated due to left lower lobe lobectomy. No new lung nodule or lung infiltrate is seen. No pneumothorax is seen. No lytic process is seen. There is a mild compression deformity of the superior endplate of T12 which is unchanged. IMPRESSION: New finding of a small amount of left-sided pleural effusion since January 15, 2019. Stable left upper lobe lung nodule. No new lung nodule is evident. Electronically signed by: Imtiaz King MD (04/17/2019 4:52 PM) [id number]
== END | disposition home or self-care (01) ==
LOC: CT 08:27
PROVIDERS: ATTEND Internal Medicine Hematology & Oncology
DX: C79.31 Secondary malignant neoplasm of brain (principal); C50.011 Malignant neoplasm of nipple and areola, right female breast; C34.92 Malignant neoplasm of unspecified part of left bronchus or lung; J90 Pleural effusion, not elsewhere classified
CPT/HCPCS: 71250

== ENCOUNTER → 2019-08-02 | Outpatient (CLI) | payer BC ==
[~2019-08-02] MED LIST changes: +GADOTERATE 7.5 MMOL/15ML VIAL. IVP ONE
--- NOTE | 2019-08-02 11:52 | RAD ---
MRI of the Brain without and with Contrast 08/02/2019 Clinical History: History of metastatic lung cancer. Technique: Unenhanced T1-weighted sagittal and axial and FLAIR, T2-weighted, gradient echo and diffusion-weighted axial images of the brain were obtained. After the intravenous administration of 15 cc of DOTAREM, enhanced T1-weighted axial, sagittal and coronal images of the brain were obtained. Findings: Comparison study is dated 02/02/2019. There is generalized parenchymal atrophy. Patchy and several small focal areas of abnormally increased signal intensity are seen within the periventricular and subcortical white matter of both cerebral hemispheres on the FLAIR and T2-weighted images consistent with areas of mild small vessel ischemic disease. These are unchanged. A 1 cm rounded mass is seen within the posterior left temporal lobe which demonstrates increased signal intensity on the T1-weighted FLAIR images and is slightly heterogeneous on the T2-weighted images. It partially enhances with contrast. It is unchanged when compared to the previous examination. There is mild surrounding edema without significant mass effect. No additional area of abnormal contrast enhancement is seen. No extra-axial fluid collection is seen. There is no MRI evidence of acute ischemia/infarction. Mild mucosal thickening is seen involving scattered throughout the paranasal sinuses. There are minimal bilateral mastoid effusions. Normal flow voids are seen within the major vascular structures surrounding the brain parenchyma. Impression: Stable MRI appearance of the 1 cm mass lesion involving the posterior left temporal lobe. No new enhancing lesion is seen. Electronically signed by: Devon Peña MD (08/02/2019 11:48 AM) [email or web address]
--- NOTE | 2019-08-02 13:03 | RAD ---
Examination: CT CHEST WO CONTRAST History: Lung cancer Comparison/Correlation: 04/17/2019 CT chest without contrast Findings: Axial images of the chest were obtained without contrast. Sagittal and coronal reformatted images were provided. Left internal jugular infusion port catheter tip terminates within the right atrium inferiorly. No enlarged thoracic lymph nodes. Coronary arterial calcification noted. Right mastectomy noted. Linear scarring or discoid atelectasis involving the posterior left hilar region is stable. No suspicious pulmonary nodule or mass. There is decrease size and density of the previously described left anterior upper lung field nodule which currently seen on axial image 25 and 26. This measures less than 0.4 cm diameter. No pneumothorax. Left lower lobectomy is present with associated surgical clips. Very small left costophrenic sulcus pleural effusion is stable. Moderate quantity of stool in the colon is partially seen. Inferior vena cava filter is partially seen. Bony structures are unremarkable. Impression: Left upper lung field nodule is less evident in the interval. No new pulmonary nodule or mass. No suspicious findings in the interval. PQRS Compliance Statement: One or more of the following individualized dose reduction techniques were utilized for this examination: 1. Automated exposure control 2. Adjustment of the mA and/or kV according to patient size 3. Use of iterative reconstruction technique Electronically signed by: Viktor Jama MD (08/02/2019 12:59 PM) [facility]
== END | disposition home or self-care (01) ==
LOC: MRI 09:10
PROVIDERS: ATTEND Internal Medicine Hematology & Oncology
DX: C34.32 Malignant neoplasm of lower lobe, left bronchus or lung (principal); I67.82 Cerebral ischemia; G31.89 Other specified degenerative diseases of nervous system; J34.89 Other specified disorders of nose and nasal sinuses
CPT/HCPCS: 70553; 71250; A9575

== ENCOUNTER 2020-07-15 03:46 | Inpatient (IN) | payer BC ==
[~2020-07-15] VITALS: Ht 167.6 cm; Wt 71.9 kg
[~2020-07-15 03:46] MED LIST changes: +AMLO-186 PO; -AMLO5TAB10 PO; -EDOX60TA PO; +EDOX60TA2 PO; -GADOTERATE 7.5 MMOL/15ML VIAL. IVP ONE; -OMEP40CA45 PO; +OMEP40CA7 PO
[2020-07-15 04:18] LABS: BILIRUBIN,URINE SMALL (NEG); CLARITY,URINE CLEAR; COLOR,URINE AMBER; NITRITE,URINE POSITIVE (NEG); PROTEIN,URINE NEGATIVE (NEG-TRACE)
[2020-07-15 04:25] LABS: BACTERIA,URINE MANY /HPF (0-FEW); RBC,URINE 0 /HPF (0-2)
[2020-07-15 04:43] LABS: BASO # 0.1 x10^3/uL (0.0-0.2); BASO % 1 % (0-3); EOS % 0 % (0-3); HEMATOCRIT 26.5 % (36.0-47.0); HEMOGLOBIN 9.2 g/dL (12.0-15.5); LYMPH # 3.1 x10^3/uL (1.0-4.8); LYMPH % 23 % (24-48); MEAN CORPUSCULAR HEMOGLOBIN 29 pg (25-35); MEAN CORPUSCULAR HGB CONC 35 g/dL (31-37); MEAN CORPUSCULAR VOLUME 85 fL (79-100); MONO # 0.6 x10^3/uL (0.0-1.1); MONO % 5 % (0-9); NEUT # 9.5 x10^3/uL (1.8-7.7); NEUT % 71 % (31-73); PLATELET COUNT 222 x10^3/uL (140-400); RED BLOOD COUNT 3.13 x10^6/uL (3.50-5.40); RED CELL DISTRIBUTION WIDTH 15.7 % (11.5-14.5); WHITE BLOOD COUNT 13.4 x10^3/uL (4.0-11.0)
[2020-07-15 04:55] LABS: ALBUMIN 3.4 g/dL (3.4-5.0); ALBUMIN/GLOBULIN RATIO 1.1 (1.0-1.7); CALCIUM 9.5 mg/dL (8.5-10.1); CREATININE 1.3 mg/dL (0.6-1.0); GFR 39.5; TOTAL PROTEIN 6.4 g/dL (6.4-8.2)
[2020-07-15 04:57] LABS: POTASSIUM 2.9 mmol/L (3.5-5.1)
--- NOTE | 2020-07-15 05:08 | PHYS DOC ---
Past Medical History Past Medical History: Anxiety, Cancer, Depression Additional Past Medical Histor: R BREAST CANCER, BRAIN CANCER - TUMOR Past Surgical History: Cancer Surgery Additional Past Surgical Histo: Rt mastectomy, LEFT LOWER LOBECTOMY Smoking Status: Never Smoker Alcohol Use: None Drug Use: None General Adult EDM: Chief Complaint: ALTERED MENTAL STATUS HPI: HPI: Patient is a 80 year old female past medical history depression breast cancer and brain tumor resents via EMS for evaluation. Per EMS patient to be evaluated due to confusion and altered mental status. Per he called 911 because patient fell out of bed. states patient frequently gets confused. He states yesterday evening patient said she did not feel well. He states patient has some episode sof mumbling and body tremors. Prior to arrival patient fell out of bed. was not able to help patient up off the floor back into bed so he called 911. Review of Systems: Review of Systems: Unable to obtain ROS from patient due to the medical condition Heart Score: Risk Factors: Risk Factors: DM, Current or recent (<one month) smoker, HTN, HLP, family history of CAD, obesity. Risk Scores: Score 0 - 3: 2.5% MACE over next 6 weeks - Discharge Home Score 4 - 6: 20.3% MACE over next 6 weeks - Admit for Clinical Observation Score 7 - 10: 72.7% MACE over next 6 weeks - Early Invasive Strategies Current Medications: Current Medications Medications (Trade) Dose Ordered Sig/Elmer Start Time Stop Time Status Last Admin Dose Admin Dextrose (Dextrose 50%-Water Syringe) 25 gm 1X ONCE 07/15/20 05:30 07/15/20 05:31 07/15/20 05:05 25 GM Potassium Chloride/Dextrose/ Sod Cl 1,000 ml @ 75 mls/hr [id number] 07/15/20 05:30 07/15/20 18:49 Allergies: Allergies: Allergies Coded Allergies Type Severity Reaction Last Updated Verified Penicillins Allergy Intermediate hives 11/18/17 Yes Sulfa (Sulfonamide Antibiotics) Allergy Intermediate RASH 11/18/17 Yes adhesive tape Allergy Intermediate SKIN PROBLEM 11/18/17 Yes Physical Exam: PE: HENT: Normocephalic, atraumatic, bilateral external ears normal, oropharynx moist, no oral exudates, nose normal. [] Eyes: EOMI, conjunctiva normal, no discharge. [] Neck: supple, no stridor. [] Cardiovascular:Heart rate regular rhythm, no murmur [] Lungs & Thorax: No respiratory distress Abdomen: Abdomen soft Skin: Warm, dry, no erythema, no rash. Back: No tenderness, no CVA tenderness. [] Extremities: No tenderness, no cyanosis, no clubbing, ROM intact, no edema. [] Neurologic: Alert , normal motor function, , no focal deficits noted. [Shivering] Current Patient Data: Labs: Laboratory Tests Test 07/15/20 04:10 07/15/20 04:30 Urine Collection Type U cath Urine Color Debbie Urine Clarity Clear Urine pH 6.0 (<5.0-8.0) Urine Specific [place] 1.020 (1.000-1.030) Urine Protein Negative mg/dL (NEG-TRACE) Urine Glucose (UA) Negative mg/dL (NEG) Urine Ketones (Stick) Negative mg/dL (NEG) Urine Blood Negative (NEG) Urine Nitrite Positive (NEG) Urine Bilirubin Small (NEG) Urine Urobilinogen Dipstick 2.0 mg/dL (0.2 mg/dL) Urine Leukocyte Esterase Moderate (NEG) Urine RBC 0 /HPF (0-2) Urine WBC 11-20 /HPF (0-4) Urine Squamous Epithelial Cells Occ /LPF Urine Bacteria Many /HPF (0-FEW) Urine Mucus Slight /LPF White Blood Count 13.4 x10^3/uL (4.0-11.0) H Red Blood Count 3.13 x10^6/uL (3.50-5.40) L Hemoglobin 9.2 g/dL (12.0-15.5) L Hematocrit 26.5 % (36.0-47.0) L Mean Corpuscular Volume 85 fL (79-100) Mean Corpuscular Hemoglobin 29 pg (25-35) Mean Corpuscular Hemoglobin Concent 35 g/dL (31-37) Red Cell Distribution Width 15.7 % (11.5-14.5) H Platelet Count 222 x10^3/uL (140-400) Neutrophils (%) (Auto) 71 % (31-73) Lymphocytes (%) (Auto) 23 % (24-48) L Monocytes (%) (Auto) 5 % (0-9) Eosinophils (%) (Auto) 0 % (0-3) Basophils (%) (Auto) 1 % (0-3) Neutrophils # (Auto) 9.5 x10^3/uL (1.8-7.7) H Lymphocytes # (Auto) 3.1 x10^3/uL (1.0-4.8) Monocytes # (Auto) 0.6 x10^3/uL (0.0-1.1) Eosinophils # (Auto) 0.0 x10^3/uL (0.0-0.7) Basophils # (Auto) 0.1 x10^3/uL (0.0-0.2) Sodium Level 130 mmol/L (136-145) L Potassium Level 2.9 mmol/L (3.5-5.1) *L Chloride Level 94 mmol/L (98-107) L Carbon Dioxide Level 30 mmol/L (21-32) Anion Gap 6 (6-14) Blood Urea Nitrogen 26 mg/dL (7-20) H Creatinine 1.3 mg/dL (0.6-1.0) H Estimated GFR (Cockcroft-Gault) 39.5 BUN/Creatinine Ratio 20 (6-20) Glucose Level 36 mg/dL (70-99) *L Calcium Level 9.5 mg/dL (8.5-10.1) Total Bilirubin 1.0 mg/dL (0.2-1.0) Aspartate Amino Transferase (AST) 32 U/L (15-37) Alanine Aminotransferase (ALT) 24 U/L (14-59) Alkaline Phosphatase 113 U/L (46-116) Total Protein 6.4 g/dL (6.4-8.2) Albumin 3.4 g/dL (3.4-5.0) Albumin/Globulin Ratio 1.1 (1.0-1.7) Laboratory Tests 07/15/20 04:30 Laboratory Tests 07/15/20 04:30 EKG: EKG: EKG performed at 0405 hrs. heart rate 46 sinus bradycardia prolonged QT QT 584 QTC 517 [] Radiology/Procedures: Radiology/Procedures: [] Impression: FINDINGS: No intracranial hemorrhage. No midline shift. Basal cisterns patents. Ventricles and sulci are globally prominent. No acute osseous abnormality. Orbits and paranasal sinuses unremarkable. Scattered foci of low attenuation within the white matter. CSF density structure at the left basal temporal region anteriorly again seen and could be from gliosis although arachnoid cyst can also have this appearance. IMPRESSION: 1. No acute intracranial hemorrhage. 2. Scattered regions of low attenuation within the white matter. Non-specific in nature but frequently secondary to small vessel ischemic disease. If there is high concern for acute causes MRI could better assess to ensure that this is all chronic in nature and that there is not a superimposed acute component. 3. Prominence of ventricles and sulci which is frequently secondary to age related volume loss. Course & Med Decision Making: Course & Med Decision Making Pertinent Labs and Imaging studies reviewed. (See chart for details) [] Patient was evaluated for chief complaint. Work-up consisted of laboratory analysis radiologic imaging and EKG. Results reviewed and discussed with . CT head no acute intracranial traumatic injury. Urine positive for nitrates leukocyte esterases and WBCs. Initial glucose in the 30's and Na of 130. Treatment included Rocephin for urinary tract infection. Patient also received D50 for hypoglycemia and was also placed on D5W with KCl. Patient also found to have oral temperature of 93.--Rosemary hugger was placed for warming. Patient admitted Dr. Castro for further evaluation and treatment. Dragon Disclaimer: Dragon Disclaimer: This electronic medical record was generated, in whole or in part, using a voice recognition dictation system. Departure Departure Impression: Primary Impression: Altered mental status Additional Impressions: Hypoglycemia Hyponatremia UTI (urinary tract infection) Hypothermia Disposition: 09 ADMITTED INPT THIS HOSP Admitting Physician: Alexi Castro Condition: STABLE Referrals: ALEXI CASTRO MD (PCP) MIKEY FUENTES DO Jul 15, 2020 05:08
[2020-07-15] MEDS ORDERED: cefTRIAXone IV Push 1 GM VIAL. IVP ONE ×2 (05:09→05:30)
[2020-07-15] MEDS ORDERED: DEXTROSE 50% 25 GM / 50ML DISP.SYRIN. IV ONE ×3 (05:30→19:15)
[2020-07-15] MEDS ORDERED: POTASSIUM CL 20MEQ D5-0.9%NACL 1,000 ML IV SCH (05:30)
--- NOTE | 2020-07-15 05:30 | RAD ---
INDICATION: Reason: altered mental status / Spl. Instructions: / History: COMPARISON: August 02, 2019 TECHNIQUE: Axial CT images obtained through the head without intravenous contrast. One or more of the following individualized dose reduction techniques were utilized for this examinat ion: 1. Automated exposure control; 2. Adjustment of the mA and/or kV according to patient size; 3 . Use of iterative reconstruction technique. FINDINGS: No intracranial hemorrhage. No midline shift. Basal cisterns patents. Ventricles and sulci are globally prominent. No acute osseous abnormality. Orbits and paranasal sinuses unremarkable. Scattered foci of low attenuation within the white matter. CSF density structure at the left basal temporal region anteriorly again seen and could be from glios is although arachnoid cyst can also have this appearance. IMPRESSION: 1. No acute intracranial hemorrhage. 2. Scattered regions of low attenuation within the white matter. Non-specific in nature but frequen tly secondary to small vessel ischemic disease. If there is high concern for acute causes MRI could b victoriano assess to ensure that this is all chronic in nature and that there is not a superimposed acute component. 3. Prominence of ventricles and sulci which is frequently secondary to age related volume loss. Electronically signed by: Crispin Castro MD (07/15/2020 5:27 AM) [id number]
[2020-07-15] MEDS ORDERED: ACETAMINOPHEN 325 MG TABLET. PO PRN (05:45)
[2020-07-15] MEDS ORDERED: ONDANSETRON PF 4 MG/2 ML VIAL. IVP ONE ×2 (06:00→08:00)
[2020-07-15] MEDS: ONDANSETRON PF 4 MG/2 ML VIAL. IV PRN ×2 (06:16→21:50)
[2020-07-15] MEDS ORDERED: ONDANSETRON PF 4 MG/2 ML VIAL. IVP PRN (08:00)
[2020-07-15] MEDS ORDERED: PANTOPRAZOLE IV PUSH 40 MG VIAL. IVP ONE (08:00)
[2020-07-15] MEDS: PANTOPRAZOLE SODIUM IV DRIP 80 MG in IV NORMAL SALINE 100ML 100 ML IV SCH ×2 (08:58→19:47)
--- NOTE | 2020-07-15 09:32 | PDOC ---
Provider Note Date of Service: DATE: 07/15/20 TIME: 09:32 Provider Note dictated Justifications for Admission Other Justification ALEXI LADD MD Jul 15, 2020 09:32
[2020-07-15] MEDS ORDERED: IV DEXTROSE 10% 1,000 ML IV ONE (11:15)
--- NOTE | 2020-07-15 12:19 | HP ---
ADMIT DATE: 07/15/2020 CHIEF COMPLAINT: Weakness and nausea. HISTORY OF PRESENT ILLNESS: A 80-year-old white female with known metastatic lung cancer, has been taking a drug for brain metastases and follow up with Dr. Gray, came in with 2 days of weakness, nausea and then coffee-ground emesis while in the ER for the first time and also hypoglycemia, unexplained. This is required D50 twice now, but she takes no diabetic meds and has been eating reasonably. There are no new medications. Home meds include losartan HCTZ, chemo drugs and oxybutynin. There has been no melena, hematochezia, dysphagia or other GI symptoms to her knowledge. PAST MEDICAL HISTORY: Per old record. ALLERGIES: No allergies known. Followed by Dr. Gray for lung cancer with brain metastases, had radiation therapy. I do not know the most recent MRI or CT findings regarding her brain mets. SOCIAL HISTORY: Nonsmoker, nondrinker, , not physically active. Retired. FAMILY HISTORY: Unremarkable. REVIEW OF SYSTEMS: No other complaints. OBJECTIVE: ENT: Mild pallor, otherwise within normal limits, looks a little dry. NECK: No carotid bruits, nodes or masses. LUNGS: Clear, without tachypnea. CARDIOVASCULAR: Regular rate, 80s-90s. No atrial fibrillation. ABDOMEN: Soft. Mildly tender in the epigastrium. No masses. EXTREMITIES: Mildly pale nails. Good pedal and radial pulses. NEUROLOGIC: Alert and oriented. She is tremulous, but no focal findings are seen. ASSESSMENT: UTI; hypoglycemia, unexplained and coffee-ground emesis suspicious for upper GI bleeding. Etiology for these is unclear. Stage 4 lung cancer ____ blood pressure. PLAN: Continue IV Protonix infusion as is currently ordered. Hold all meds, follow hemogram, get a cortisol regarding her hyperglycemia. She wishes to be a full code at this point. ALEXI LADD MD DR: DANNY/stanislaw JOB#: [id number] / [id number]
[2020-07-15 14:58] LABS: FECAL OB PT NEGATIVE (NEG)
[2020-07-15 16:00] VITALS: BP 126/50
[2020-07-15 16:46] LABS: HEMATOCRIT 25.4 % (36.0-47.0); HEMOGLOBIN 8.8 g/dL (12.0-15.5); RED BLOOD COUNT 3.01 x10^6/uL (3.50-5.40); RED CELL DISTRIBUTION WIDTH 15.9 % (11.5-14.5); WHITE BLOOD COUNT 16.5 x10^3/uL (4.0-11.0)
[2020-07-15 19:00] VITALS: BP 106/41
[2020-07-15] MEDS: DEXTROSE 50% 25 GM / 50ML DISP.SYRIN. IV PRN ×3 (20:56→22:55)
[2020-07-15] MEDS ORDERED: IV DEXTROSE 10% 1,000 ML IV SCH (22:00)
[2020-07-15 22:35] VITALS: BP 116/66
--- NOTE | 2020-07-15 22:50 | NUR ---
Patient transferred to CVICU room 267 with belongings per bed. Report given to CANDIE Marcus. Spoke to regarding patient transfer of rooms. During charting this RN became aware that patients admission from today was not completed. Patient confused due to hypoglycemia and not able to answer questions at this time. Was able to obtain history from past medical records. Dr. Castro saw patient in ED hold and addressed home medications at that time.
[2020-07-15 23:00] VITALS: BP 101/30
[2020-07-15 23:33] LABS: GASTRIC OB PAT POSITIVE (NEG)
[2020-07-15 23:47] VITALS: BP 105/47
[2020-07-16] VITALS (7 sets, daily range): BP systolic 106–144; BP diastolic 43–83
[2020-07-16] MEDS: DEXTROSE 50% 25 GM / 50ML DISP.SYRIN. IV PRN ×9 (00:02→21:42)
[2020-07-16] MEDS: IV DEXTROSE 5% 250 ML BAG. IV PRN ×3 (01:45→23:11)
[2020-07-16] MEDS ORDERED: POTASSIUM CL 40MEQ D5-0.45NACL 1,000 ML IV SCH (09:00)
--- NOTE | 2020-07-16 09:09 | PDOC ---
Provider Note Date of Service: DATE: 07/16/20 TIME: 09:07 Provider Note prsistant hypoglycemia, she and deny any insulin use- ? inadvertant VINCENT ingestion- insulin level pending-hb down 8.8, no more emesis- will cont iv protonix, add carafate, follow hb- add Kcl , fl diet to follow hypoglycemiatill clear- await urine cult Justifications for Admission Other Justification ALEXI LADD MD Jul 16, 2020 09:09
[2020-07-16] MEDS: PANTOPRAZOLE IV PUSH 40 MG VIAL. IVP SCH ×2 (10:26→21:43)
[2020-07-16] MEDS: SUCRALFATE 1 GM TABLET. PO SCH ×3 (11:30→21:43)
[2020-07-16 15:21] LABS: BASO # 0.1 x10^3/uL (0.0-0.2); BASO % 1 % (0-3); EOS # 0.2 x10^3/uL (0.0-0.7); EOS % 1 % (0-3); HEMATOCRIT 26.7 % (36.0-47.0); HEMOGLOBIN 9.2 g/dL (12.0-15.5); LYMPH # 3.9 x10^3/uL (1.0-4.8); LYMPH % 26 % (24-48); MEAN CORPUSCULAR HEMOGLOBIN 29 pg (25-35); MEAN CORPUSCULAR HGB CONC 34 g/dL (31-37); MEAN CORPUSCULAR VOLUME 84 fL (79-100); MONO # 1.2 x10^3/uL (0.0-1.1); MONO % 8 % (0-9); NEUT # 9.4 x10^3/uL (1.8-7.7); NEUT % 64 % (31-73); PLATELET COUNT 250 x10^3/uL (140-400); RED BLOOD COUNT 3.18 x10^6/uL (3.50-5.40); RED CELL DISTRIBUTION WIDTH 15.8 % (11.5-14.5); WHITE BLOOD COUNT 14.8 x10^3/uL (4.0-11.0)
[2020-07-16 15:30] LABS: CALCIUM 8.8 mg/dL (8.5-10.1); GFR 53.5; POTASSIUM 3.6 mmol/L (3.5-5.1)
--- NOTE | 2020-07-16 16:18 | NUR ---
SS following up with discharge planning. SS reviewed pt chart and discussed with pt RN. Pt is from home with spouse and is currently on room air. Pt's sugars are low and Dr. Castro wanting to monitor. Discharge plan is to home when medically ready. SS will continue to follow for discharge planning.
[2020-07-16 21:33] LABS: HEMATOCRIT 26.9 % (36.0-47.0); HEMOGLOBIN 9.1 g/dL (12.0-15.5); RED BLOOD COUNT 3.2 x10^6/uL (3.50-5.40); RED CELL DISTRIBUTION WIDTH 15.6 % (11.5-14.5); WHITE BLOOD COUNT 16.7 x10^3/uL (4.0-11.0)
[2020-07-17] MEDS: IV DEXTROSE 5% 250 ML BAG. IV PRN (02:04)
[2020-07-17 03:35] VITALS: BP 106/51
[2020-07-17 07:00] VITALS: BP 121/53
--- NOTE | 2020-07-17 08:56 | PDOC ---
Provider Note Date of Service: DATE: 07/17/20 TIME: 08:54 Provider Note hb stable, no more cg emesis, urine cult shows sens to rocephin- hypoglycemia has stopped x 8 hrs- must have taken an VINCENT at home accidentally, will follow- adv diet , iv med, maybe dc in am Justifications for Admission Other Justification ALEXI LADD MD Jul 17, 2020 08:56
[2020-07-17] MEDS: PANTOPRAZOLE 40 MG TABLET.DR. PO SCH (09:40)
[2020-07-17] MEDS: SUCRALFATE 1 GM TABLET. PO SCH ×4 (09:40→20:43)
[2020-07-17] MEDS: cefTRIAXone IV Push 1 GM VIAL. IVP SCH (09:40)
[2020-07-17 11:00] VITALS: BP 116/53
--- NOTE | 2020-07-17 14:17 | NUR ---
SS following up with discharge planning. SS reviewed pt chart and discussed with pt RN. Pt is currently on room air. Pt on IV Rocephin. ECOLI in urine. Dr. Castro stated not ready. Discharge plan is to home when medically ready. SS will continue to follow for discharge planning.
[2020-07-17 15:00] VITALS: BP 154/52
[2020-07-17] MEDS ORDERED: ACETAMINOPHEN 325 MG TABLET. PO PRN (18:45)
[2020-07-17 19:30] VITALS: BP 92/51
[2020-07-17 22:37] VITALS: BP 121/59
[2020-07-18 02:47] VITALS: BP 128/60
[2020-07-18 07:24] VITALS: BP 116/68
[2020-07-18] MEDS: cefTRIAXone IV Push 1 GM VIAL. IVP SCH (08:09)
[2020-07-18] MEDS: SUCRALFATE 1 GM TABLET. PO SCH (08:09)
[2020-07-18] MEDS: PANTOPRAZOLE 40 MG TABLET.DR. PO SCH (08:09)
--- NOTE | 2020-07-18 08:37 | PDOC ---
Provider Note Date of Service: DATE: 07/18/20 TIME: 08:35 Provider Note [id number] Justifications for Admission Other Justification ALEXI LADD MD Jul 18, 2020 08:37
--- NOTE | 2020-07-18 09:07 | DS ---
DATE OF DISCHARGE: 07/18/2020 HOSPITAL SUMMARY: A 80-year-old white female, who came in with chills, fever, vomiting, coffee-ground emesis and hypoglycemia. She was found by lab to have urinary tract infection, grew out E. coli sensitive to all antibiotics except for Cipro and Levaquin. Blood sugar was 36 on admission and for the next 24 hours ran between 30 and 150, requiring multiple doses of D50 to maintain it along with a D10 drip. After about 36 hours, her hypoglycemia abated, blood sugars remained normal after that. Potassium was low at 2.9, sodium low at 130 on admission, and these improved to normal with IV fluids. Hemoglobin was 9.2 on admission and remained stable; white count was the same as well. CT scan of the head was unremarkable. She was given IV Rocephin throughout the hospital stay for her UTI and remained afebrile. Her hemorrhagic gastritis was treated with IV Protonix drip followed by IV and oral Protonix and did not recur. Her hemoglobin remained stable. She was off the blood pressure meds and Savaysa while in the hospital. The etiology of the hypoglycemia was never identified, but almost certainly had to be an inadvertent administration of an oral sulfonylurea given the severity and duration of the hypoglycemic event. At this time, she is eating and drinking, vital signs are stable, blood pressure is good off her blood pressure meds, and she is feeling better and able to be discharged. FINAL DIAGNOSES: 1. Severe hypoglycemia, likely secondary to inadvertent administration or ingestion of oral sulfonylurea drug. 2. Hemorrhagic gastritis, improving. 3. Urinary tract infection. OPERATIONS, PROCEDURES, COMPLICATIONS, CONSULTATIONS: None. 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 She will see Dr. Horowitz in 1 week. Follow up hemoglobin and urinalysis. The family will evaluate the home med system and make sure that she is not able to have access of any oral sulfonylurea drugs, which are available in the home from other members of the family. ALEXI LADD MD DR: DANNY/stanislaw JOB#: [id number] / [id number]
[2020-07-18 09:30] LABS: CALCIUM 8.6 mg/dL (8.5-10.1); GFR 53.5; POTASSIUM 3.8 mmol/L (3.5-5.1)
[2020-07-18 10:29] VITALS: BP 123/55
[2020-07-18] MEDS ORDERED: HEPARIN PF 500 UNIT/5 ML DISP.SYRIN. IVP ONE (12:00)
--- NOTE | 2020-07-18 12:23 | NUR ---
Discharge Note: PRICILLA ARIAS Discharge instructions and discharge home medications reviewed with Patient and a copy given. All questions have been answered and understanding verbalized. The following instructions and handouts were given: AMS, Hypoglycemia, UTI Discontinued lines and drains: Port-o-cath deaccess, IV out. Patient discharged to home with self care via spouse and private vehicle. Pt's spouse did advise they may want home health, Dr. Castro paged but patient and spouse not willing to wait for new orders. They advised they would follow up with Dr. Castro on Tuesday and would discuss with the doctor.
== END 2020-07-18 12:15 | disposition home or self-care (01) | DRG 640 ==
LOC: ER 03:46 → ED HOLD 05:05 → 5 NORTH 16:04 → CVICU 22:33 → 2 NORTH 07-16 18:30
PROVIDERS: ADMIT Family Medicine; ATTEND Family Medicine
DX: E16.2 Hypoglycemia, unspecified (principal); K29.71 Gastritis, unspecified, with bleeding; N39.0 Urinary tract infection, site not specified; E87.1 Hypo-osmolality and hyponatremia; C34.90 Malignant neoplasm of unspecified part of unspecified bronchus or lung; C79.31 Secondary malignant neoplasm of brain; F32.9 Major depressive disorder, single episode, unspecified; F41.9 Anxiety disorder, unspecified; W06.XXXA Fall from bed, initial encounter; T38.3X5A Adverse effect of insulin and oral hypoglycemic [antidiabetic] drugs, initial encounter; Z85.3 Personal history of malignant neoplasm of breast; Z85.841 Personal history of malignant neoplasm of brain; Z90.11 Acquired absence of right breast and nipple; Z90.12 Acquired absence of left breast and nipple; Y92.89 Other specified places as the place of occurrence of the external cause; B96.20 Unspecified Escherichia coli [E. coli] as the cause of diseases classified elsewhere; Y93.89 Activity, other specified; Y99.8 Other external cause status; Z88.0 Allergy status to penicillin; Z88.2 Allergy status to sulfonamides; Z88.8 Allergy status to other drugs, medicaments and biological substances
CPT/HCPCS: 36415; 70450; 80048; 80053; 81001; 82271; 82274; 82533; 82962; 83605; 85025; 85027; 87077; 87086; 87186; 93005; 96374; 99285; C9113; J0696; J1642; J2405; J3480; J3490; J7060; G0378

== ENCOUNTER 2021-03-29 02:56 | Inpatient (IN) | payer BC ==
[2021-03-29] VITALS (8 sets, daily range): BP systolic 104–142; BP diastolic 44–60
[~2021-03-29] VITALS: Ht 172.7 cm; Wt 66.0 kg
[2021-03-29 03:18] LABS: BILIRUBIN,URINE NEGATIVE (NEG); CLARITY,URINE CLOUDY; COLOR,URINE YELLOW; NITRITE,URINE POSITIVE (NEG); PH,URINE 5.5 (<5.0-8.0); PROTEIN,URINE 100 mg/dL (NEG-TRACE)
[2021-03-29 03:23] LABS: AMORPHOUS SEDIMENT,UR PRESENT /HPF; BACTERIA,URINE MODERATE /HPF (0-FEW)
[2021-03-29 03:42] LABS: CALCIUM 9.1 mg/dL (8.5-10.1); CREATININE 1.3 mg/dL (0.6-1.0); GFR 39.5; POTASSIUM 3.4 mmol/L (3.5-5.1)
--- NOTE | 2021-03-29 03:42 | PHYS DOC ---
Past Medical History Past Medical History: Anxiety, Cancer, Depression Additional Past Medical Histor: R BREAST CANCER, BRAIN CANCER - TUMOR Past Surgical History: Cancer Surgery Additional Past Surgical Histo: Rt mastectomy, LEFT LOWER LOBECTOMY Smoking Status: Unknown if ever smoked Alcohol Use: None Drug Use: None General Adult EDM: Chief Complaint: WEAKNESS/GENERALIZED HPI: HPI: Patient is a 80 year old female with past medical history lung cancer, breast cancer, anxiety, and depression presents for the evaluation of generalized weakness. History obtained from her . He states over the last 3 days patient has had decreased appetite and and has not been eating or drinking properly. He states today he was able to get the patient to drink 3 boost. states he has noticed that his has been more confused than normal. This evening patient went to the bathroom and was have having difficulty getting dressed and getting back to bed. On exam patient is alert but confused. She has no focal neurological deficits. Patient is febrile with a temperature of 101.2. Her skin appears jaundice. Review of Systems: Review of Systems: Limited due to mental status Heart Score: C/O Chest Pain: N/A Risk Factors: Risk Factors: DM, Current or recent (<one month) smoker, HTN, HLP, family history of CAD, obesity. Risk Scores: Score 0 - 3: 2.5% MACE over next 6 weeks - Discharge Home Score 4 - 6: 20.3% MACE over next 6 weeks - Admit for Clinical Observation Score 7 - 10: 72.7% MACE over next 6 weeks - Early Invasive Strategies Allergies: Allergies: Allergies Coded Allergies Type Severity Reaction Last Updated Verified Penicillins Allergy Intermediate hives 11/18/17 Yes Sulfa (Sulfonamide Antibiotics) Allergy Intermediate RASH 11/18/17 Yes adhesive tape Allergy Intermediate SKIN PROBLEM 11/18/17 Yes Physical Exam: PE: General: alert, no acute distress. Skin: warm, dry and intact, no erythema, no rash. Jaundice HENT: bilateral external ears normal, oropharynx moist, nose normal. Head:: Normocephalic, atraumatic. Neck: Trachea midline. Eyes: EOMI, Normal conjunctiva, No drainage CARDIOVASCULAR: Regular rate and rhythm RESPIRATORY: No respiratory distress Back: Full range of motion. MUSCULOSKELETAL: Full range of motion of bilateral upper and lower extremities. GASTROINTESTINAL: Abdomen soft without rebound or guarding. Rectal exam performed with nursing dumpster operator no bright red blood on exam dark stool but not black NEUROLOGICAL: Alert and noted to person, place and time. No neurological deficits observed Psychiatric: Cooperative. Normal judgment Current Patient Data: Labs: Laboratory Tests Test 03/29/21 03:05 Urine Collection Type U cath Urine Color Yellow Urine Clarity Cloudy Urine pH 5.5 (<5.0-8.0) Urine Specific [place] 1.025 (1.000-1.030) Urine Protein 100 mg/dL (NEG-TRACE) Urine Glucose (UA) Negative mg/dL (NEG) Urine Ketones (Stick) Trace mg/dL (NEG) Urine Blood Large (NEG) Urine Nitrite Positive (NEG) Urine Bilirubin Negative (NEG) Urine Urobilinogen Dipstick 1.0 mg/dL (0.2 mg/dL) Urine Leukocyte Esterase Moderate (NEG) Urine RBC 1-2 /HPF (0-2) Urine WBC 11-20 /HPF (0-4) Urine Squamous Epithelial Cells Few /LPF Urine Amorphous Sediment Present /HPF Urine Bacteria Moderate /HPF (0-FEW) Urine Mucus Slight /LPF EKG: EKG: [] Performed at [address] elevation No ST depression No acute [place] Radiology/Procedures: Radiology/Procedures: [] Course & Med Decision Making: Course & Med Decision Making Pertinent Labs and Imaging studies reviewed. (See chart for details) [] Patient was evaluated for chief complaint. Patient with several abnormal labs. Patient's hemoglobin found to be 7.2. Occult stool positive. Patient's creatinine found to be at 1.3. Patient's troponin noted to be elevated at 0.13 with a normal EKG. Patient's urine found to be positive for nitrates and leukocyte esterase. Patient was typed and screened. I elected to transfuse 1 unit. Patient was dosed with Protonix bolus followed by drip. Due to anemia and possible GI bleed I elected not to heparinize the patient. I did order a repeat troponin. Patient was admitted to her primary care physician GI and cardiology were consulted Rose Mary Disclaimer: Rose Mary Disclaimer: This electronic medical record was generated, in whole or in part, using a voice recognition dictation system. Departure Departure Impression: Primary Impression: AMS (altered mental status) Additional Impressions: Anemia UTI (urinary tract infection) GI bleed Disposition: ADMITTED INPATIENT Admitting Physician: Eduardo Castro Condition: STABLE Referrals: EDUARDO CASTRO MD (PCP) MIKEY FUENTES DO Mar 29, 2021 03:41
[2021-03-29 03:45] LABS: BASO # 0.1 x10^3/uL (0.0-0.2); BASO % 0 % (0-3); EOS # 0.1 x10^3/uL (0.0-0.7); EOS % 0 % (0-3); HEMOGLOBIN 7.2 g/dL (12.0-15.5); LYMPH # 1.5 x10^3/uL (1.0-4.8); LYMPH % 11 % (24-48); MEAN CORPUSCULAR HEMOGLOBIN 30 pg (25-35); MEAN CORPUSCULAR HGB CONC 35 g/dL (31-37); MEAN CORPUSCULAR VOLUME 87 fL (79-100); MONO % 7 % (0-9); NEUT # 11.1 x10^3/uL (1.8-7.7); NEUT % 81 % (31-73); PLATELET COUNT 153 x10^3/uL (140-400); RED BLOOD COUNT 2.38 x10^6/uL (3.50-5.40); RED CELL DISTRIBUTION WIDTH 17.1 % (11.5-14.5); WHITE BLOOD COUNT 13.7 x10^3/uL (4.0-11.0)
[2021-03-29 03:48] LABS: ALBUMIN 2.6 g/dL (3.4-5.0); ALBUMIN/GLOBULIN RATIO 0.7 (1.0-1.7); TOTAL BILIRUBIN 1.8 mg/dL (0.2-1.0); TOTAL PROTEIN 6.1 g/dL (6.4-8.2)
[2021-03-29 03:54] LABS: HEMATOCRIT 20.8 % (36.0-47.0)
[2021-03-29] MEDS ORDERED: IV NORMAL SALINE 1000ML BAG 1,000 ML IV ONE (04:00)
[2021-03-29] MEDS ORDERED: CIPROFLOXACIN 400MG PREMIX 200 ML IV ONE (04:00)
[2021-03-29 04:54] LABS: % BANDS 4 % (0-9); % LYMPHS 8 % (24-48); % MONOS 3 % (0-10); % SEGS 85 % (35-66); PLT ESTIMATE ADEQUATE (ADEQUATE)
[2021-03-29 04:58] LABS: FECAL OB PT POSITIVE (NEG)
[2021-03-29] MEDS ORDERED: PANTOPRAZOLE IV PUSH 40 MG VIAL. IVP ONE (05:15)
[2021-03-29] MEDS ORDERED: ACETAMINOPHEN 500 MG TABLET PO ONE (05:45)
[2021-03-29] MEDS: PANTOPRAZOLE SODIUM IV DRIP 80 MG in IV NORMAL SALINE 100ML 100 ML IV SCH ×3 (06:00→22:41)
--- NOTE | 2021-03-29 06:06 | RAD ---
EXAM: CHEST ONE VIEW. HISTORY: Weakness. COMPARISON: 08/02/2019, 06/26/2019. FINDINGS: A frontal view of the chest is obtained. A left-sided port catheter has its tip in the righ t atrium. The inspiration is small. A left hilar opacity consistent with posttreatment changes better seen on p rior studies. There is mild atelectasis or infiltrate in the right base. There is no pneumothorax or pleural effusion. The heart is not enlarged. IMPRESSION: 1. Mild right basilar atelectasis or infiltrate. 2. Stable left perihilar posttreatment change. Electronically signed by: Kody Kovacs MD (03/29/2021 6:03 AM) [facility]
--- NOTE | 2021-03-29 10:26 | PDOC ---
Provider Note Date of Service: DATE: 03/29/21 TIME: 10:26 Provider Note dictated Justifications for Admission Other Justification ALEXI LADD MD Mar 29, 2021 10:26
[2021-03-29] MEDS ORDERED: ACETAMINOPHEN 325 MG TABLET. PO PRN (10:30)
[2021-03-29] MEDS ORDERED: EDOX60TA2 PO (10:34)
--- NOTE | 2021-03-29 11:35 | HP ---
ADMIT DATE: 03/29/2021 CHIEF COMPLAINT: Weakness and confusion. HISTORY OF PRESENT ILLNESS: This is a patient known to our practice, sees Dr. Horowitz for multiple medical problems including previous breast cancer and lung cancer. She sees Dr. Isabel at for treatment for lung cancer, on unknown med. She has had increasing confusion, poor oral intake and weakness for the last 3 or 4 days and was found to have a UTI and also heme-positive stools and mild anemia. She has received IV Protonix and IV Cipro and is sleeping at this time in the ER holding. PAST HISTORY: MEDICATIONS: Listed per the chart. ALLERGIES: LISTED PENICILLIN. ONCOLOGY HISTORY: Per . SOCIAL HISTORY: , nonsmoker, drinker. Retired, not physically active. FAMILY HISTORY: Unremarkable. REVIEW OF SYSTEMS: Unremarkable. OBJECTIVE: ENT: Mucosa are pale. Sclerae are clear. TMs and pharynx normal. NECK: No bruits, nodes or masses. LUNGS: Decreased breath sounds. No tachypnea. CARDIOVASCULAR: Regular rate. Grade 2 systolic murmur across the precordium consistent with anemia. ABDOMEN: Soft, benign, mildly tender at the epigastrium. EXTREMITIES: Decreased skin turgor. No joint or skin lesions. Pedal pulses are adequate. NEUROLOGIC: Sleepy. No focal findings are noted. Mental status is not tested. Gait is not tested. ASSESSMENT: Confusion and weakness secondary to urinary tract infection. She also has what appears to be a low-grade gastrointestinal bleed with mild anemia and heme-positive stools, but no overt visual blood loss. PLAN: Continue IV Protonix and she has received 1 unit of packed cells. Continue IV Cipro and pending urine culture and monitor. No plans for endoscopy at this time given her fragile state after evaluating old records with regards to previous endoscopy. DNR per her request from previous visits in the office. DANNY/MAHESH/ARSENIO DR: DANNY/stanislaw TID: [id number]
[2021-03-29] MEDS: POTASSIUM CL 20MEQ D5-0.9%NACL 1,000 ML IV SCH ×2 (15:17→22:39)
[2021-03-29] MEDS: CIPROFLOXACIN 400MG PREMIX 200 ML IV SCH (15:17)
[2021-03-30 03:00] VITALS: BP 139/60
[2021-03-30] MEDS: CIPROFLOXACIN 400MG PREMIX 200 ML IV SCH ×3 (04:28→20:42)
[2021-03-30] MEDS: POTASSIUM CL 20MEQ D5-0.9%NACL 1,000 ML IV SCH ×2 (04:33→23:33)
[2021-03-30 07:00] VITALS: BP 153/58
--- NOTE | 2021-03-30 08:40 | PDOC ---
Provider Note Date of Service: DATE: 03/30/21 TIME: 08:39 Provider Note vss, no temp, some + po intake- labs pending- will go to po protonix, reduce iv fluid, adv diet , follow hb re source of gi bleed, may need gi/egd Justifications for Admission Other Justification ALEXI LADD MD Mar 30, 2021 08:40
[2021-03-30 11:00] VITALS: BP 135/53
[2021-03-30] MEDS: SUCRALFATE 1 GM TABLET. PO SCH ×3 (11:57→20:42)
[2021-03-30] MEDS: PANTOPRAZOLE 40 MG TABLET.DR. PO SCH (11:57)
[2021-03-30 14:16] LABS: HEMATOCRIT 26.1 % (36.0-47.0); HEMOGLOBIN 8.9 g/dL (12.0-15.5); RED BLOOD COUNT 2.94 x10^6/uL (3.50-5.40); RED CELL DISTRIBUTION WIDTH 17.5 % (11.5-14.5); WHITE BLOOD COUNT 14.3 x10^3/uL (4.0-11.0)
[2021-03-30 14:25] LABS: CALCIUM 8.9 mg/dL (8.5-10.1); GFR 53.5
[2021-03-30 14:28] LABS: POTASSIUM 2.8 mmol/L (3.5-5.1)
--- NOTE | 2021-03-30 14:52 | NUR ---
SW following. Discussed with RN, pt from home with , room air, full liquid diet. Gets around okay, per RN. RN advised no SW needs at this time. SW will continue to follow.
[2021-03-30 15:00] VITALS: BP 147/51
[2021-03-30] MEDS: POTASSIUM CHLORIDE 10 MEQ TABLET.ER. PO SCH ×2 (17:18→20:42)
[2021-03-30 19:00] VITALS: BP 130/52
[2021-03-30 23:00] VITALS: BP 134/55
[2021-03-31 03:00] VITALS: BP 155/86
[2021-03-31 07:00] VITALS: BP 142/73
[2021-03-31 07:30] LABS: HEMATOCRIT 23.5 % (36.0-47.0); RED BLOOD COUNT 2.67 x10^6/uL (3.50-5.40); RED CELL DISTRIBUTION WIDTH 17.4 % (11.5-14.5); WHITE BLOOD COUNT 12.7 x10^3/uL (4.0-11.0)
[2021-03-31 07:46] LABS: CALCIUM 8.3 mg/dL (8.5-10.1); GFR 53.5; POTASSIUM 3.1 mmol/L (3.5-5.1)
--- NOTE | 2021-03-31 08:19 | PDOC ---
Provider Note Date of Service: DATE: 03/31/21 TIME: 08:18 Provider Note vss, no temp, alert- cult shows e coli, sens to all- K+ still low as is hb- po cipro now , follow hb another day b4 dc decision, if lower needs egd Justifications for Admission Other Justification ALEXI LADD MD Mar 31, 2021 08:19
--- NOTE | 2021-03-31 08:29 | PDOC ---
Provider Note Date of Service: DATE: 03/31/21 TIME: 08:29 Provider Note takes savaysa at home for prior dvt- off now as risk > benefit Justifications for Admission Other Justification ALEXI LADD MD Mar 31, 2021 08:29
[2021-03-31] MEDS: PANTOPRAZOLE 40 MG TABLET.DR. PO SCH (08:48)
[2021-03-31] MEDS: POTASSIUM CHLORIDE 10 MEQ TABLET.ER. PO SCH ×3 (08:48→21:55)
[2021-03-31] MEDS: SUCRALFATE 1 GM TABLET. PO SCH ×4 (08:48→21:54)
[2021-03-31] MEDS: CIPROFLOXACIN HCL 250 MG TABLET. PO SCH ×2 (08:48→21:55)
[2021-03-31 11:00] VITALS: BP 121/43
[2021-03-31 15:00] VITALS: BP 133/48
[2021-03-31 19:00] VITALS: BP 138/61
[2021-03-31 23:00] VITALS: BP 128/72
[2021-04-01 03:00] VITALS: BP 131/62
[2021-04-01 07:00] VITALS: BP 159/54
--- NOTE | 2021-04-01 08:24 | PDOC ---
Provider Note Date of Service: DATE: 04/01/21 TIME: 08:23 Provider Note [id number] Justifications for Admission Other Justification ALEXI LADD MD Apr 01, 2021 08:24
--- NOTE | 2021-04-01 08:44 | DS ---
DATE OF DISCHARGE: 04/01/2021 HOSPITAL SUMMARY: A 80-year-old white female came in with confusion, UTI, heme positive stool and anemia. She takes Savaysa for previous DVT prophylaxis. BUN was 51, creatinine 1.3 with a GFR of 40 on admission. GFR came up to 54 with hydration. Hemoglobin was 7.2 on admission and after 3 units of packed cells was 8.0 and seemingly stable. COVID serology was negative as was C. diff toxin. E. coli sensitive to all antibiotics tested and grew out of the urine. She was treated with IV and oral Protonix, IV fluids for renal recovery and Savaysa was discontinued. IV Cipro was given and then oral Cipro and she has been afebrile throughout the hospital stay. She is feeling better. Vital signs are stable and is comfortable to be followed as an outpatient. FINAL DIAGNOSES: 1. Microcytic anemia secondary to subacute gastrointestinal bleed. 2. Urinary tract infection. 3. Acute renal injury secondary to vasomotor nephropathy, resolved. OPERATIONS, PROCEDURES, COMPLICATIONS AND CONSULTATIONS: None. DISPOSITION: No more Savaysa as risk greater than benefit. She will take 2 more weeks of omeprazole 40 mg daily. We will monitor hemoglobin next week. Per Dr. Horowitz, off the anticoagulant as risk greater than benefit. She will take 2 more days of Cipro as well as an outpatient to finish treatment for her UTI. Regular diet. Rest of home medicines remain the same. Activity as tolerated. Prognosis is guarded. FERNANDO DR: Teresa TID: [id number]
[2021-04-01] MEDS: PANTOPRAZOLE 40 MG TABLET.DR. PO SCH (10:16)
[2021-04-01 11:00] VITALS: BP 142/75
--- NOTE | 2021-04-01 11:09 | NUR ---
SW following. Discussed with RN, pt from home alone. COVID-19 negative. Discharge order for home with self care. RN advised no SW needs.
[2021-04-01] MEDS ORDERED: HEPARIN PF 500 UNIT/5 ML DISP.SYRIN. IVP ONE (13:30)
--- NOTE | 2021-04-01 13:51 | NUR ---
pt was discahrged home with home health, [facility] was the preference for the pt. There was no scripts for the pt and her Right Port was [id number] jarett Aguilera RN and . Corby Patton RN
--- NOTE | 2021-04-01 15:33 | NUR ---
SW following. Discussed with RN, pt from home with , room air, regular diet. Family preference of [facility]. SOL faxed clinicals and discharge orders to [facility]. Pt discharged today.
== END 2021-04-01 13:51 | disposition home health service (06) | DRG 377 ==
LOC: ER 02:56 → ED HOLD 04:58 → 5 SOUTH 06:22
PROVIDERS: ADMIT Family Medicine; ATTEND Family Medicine
PROC: 30233N1 Transfusion of Nonautologous Red Blood Cells into Peripheral Vein, Percutaneous Approach (ICD-10-PCS; principal; 2021-03-29)
DX: K92.2 Gastrointestinal hemorrhage, unspecified (principal); G92 Toxic encephalopathy; R65.11 Systemic inflammatory response syndrome (SIRS) of non-infectious origin with acute organ dysfunction; N17.0 Acute kidney failure with tubular necrosis; N39.0 Urinary tract infection, site not specified; R17 Unspecified jaundice; C34.90 Malignant neoplasm of unspecified part of unspecified bronchus or lung; E44.0 Moderate protein-calorie malnutrition; D50.9 Iron deficiency anemia, unspecified; Z85.118 Personal history of other malignant neoplasm of bronchus and lung; Z85.3 Personal history of malignant neoplasm of breast; Z85.841 Personal history of malignant neoplasm of brain; Z90.11 Acquired absence of right breast and nipple; Z90.12 Acquired absence of left breast and nipple; F32.9 Major depressive disorder, single episode, unspecified; F41.9 Anxiety disorder, unspecified; Z88.0 Allergy status to penicillin; Z66 Do not resuscitate; B96.20 Unspecified Escherichia coli [E. coli] as the cause of diseases classified elsewhere; Z86.718 Personal history of other venous thrombosis and embolism; Z79.01 Long term (current) use of anticoagulants
CPT/HCPCS: 36415; 36430; 71045; 80048; 80053; 81001; 82274; 84484; 85007; 85025; 85027; 86850; 86900; 86901; 86920; 87077; 87086; 87186; 87493; 96365; 96375; C9113; J0744; J1642; J3480; J7030; P9016; P9612; 99285-25; G0378